=== PATIENT | female | born 1940 | race Caucasian/White ===

== ENCOUNTER 2020-06-29 14:12 | Inpatient (IN) ==
[2020-06-29] MEDS ORDERED: Isovue-370 500 ML BOTTLE IVP ONE (14:38)
[2020-06-29] MEDS ORDERED: 0.9 % Sodium Chloride 500 ML ONE (15:08)
[2020-06-29 15:11] LABS: Basophils % 0.1 %; Eosinophils # 0.1 K/mcL (0.0-0.6); Eosinophils % 1.6 %; Hemoglobin 8.7 g/dL (11.5-15.4); Immature Granulocytes % 0.3 % (0-4); Lymphocytes # 1.2 K/mcL (0.6-4.6); Lymphocytes % 17.7 %; Mean Corpuscular HGB Conc 31.1 g/dL (31.6-35.5); Mean Corpuscular Hemoglobin 35.4 pg (28.0-33.3); Mean Corpuscular Volume 113.8 fL (83.0-100.0); Mean Platelet Volume 9.2 fL (9.4-12.4); Monocytes # 0.5 K/mcL (0.0-1.3); Monocytes % 7.5 %; Neutrophils # 4.9 K/mcL (1.6-8.9); Platelet Count 188 K/mcL (140-400); Red Blood Count 2.46 M/mcL (3.82-4.97); Red Cell Distribution Width 15.9 % (11.5-14.5); Segmented Neutrophils % 72.8 %; White Blood Count 6.7 K/mcL (4.3-11.1)
[2020-06-29 15:13] LABS: INR 1.1; Prothrombin Time 12.7 Seconds (9.4-12.1)
[2020-06-29] MEDS ORDERED: 0.9 % Sodium Chloride 500 ML IVC ONE ×2 (15:13→15:47)
[2020-06-29 15:16] LABS: Activated Partial Thrombo Time 24.9 Seconds (26.0-36.0)
[2020-06-29 15:31] LABS: Anisocytosis 1+ (Not Present); Calcium 10.3 mg/dL (8.6-10.3); Macrocytosis Present (Not Present); Platelet Estimate Normal (Normal); Potassium 6.4 mEq/L (3.5-5.1)
[2020-06-29] MEDS ORDERED: *HR* Dextrose 50 % in Water (Vial) 50 ML VIAL IVP ONE (15:35)
[2020-06-29] MEDS ORDERED: Albuterol 2.5 MG/3 ML NEBULIZER IH ONE (15:36)
[2020-06-29] MEDS ORDERED: Calcium Gluconate 1gm/50mL 1 GM/50 ML BAG IVPB ONE (15:41)
[2020-06-29] MEDS ORDERED: Insulin Human Regular 10 UNIT in 0.9 % Sodium Chloride 10 ML IV STA (15:42)
[2020-06-29] MEDS ORDERED: Calcium Gluconate 1gm/50mL 1 GM/50 ML BAG IVPB STA (15:43)
[2020-06-29] MEDS ORDERED: MetroNIDAZOLE 500 MG/100 ML 500 MG/100 ML BAG IVPB ONE (16:02)
[2020-06-29] MEDS ORDERED: Pantoprazole 40 MG VIAL IVP ONE (16:06)
[2020-06-29] MEDS ORDERED: D5% in Water 1,000 ML IVC PRN (16:07)
[2020-06-29] MEDS ORDERED: Naloxone 0.4 MG/ML INJ IVP PRN (16:07)
[2020-06-29] MEDS ORDERED: Dextrose Gel 15 GM/37.5 ML TUBE PO PRN ×2 (16:07)
[2020-06-29] MEDS ORDERED: *HR* Dextrose 50 % in Water (Vial) 50 ML VIAL IVP PRN (16:07)
[2020-06-29] MEDS ORDERED: Acetaminophen 325 MG TABLET PO PRN (16:07)
[2020-06-29] MEDS ORDERED: Ondansetron 4 MG/2 ML VIAL IVP PRN (16:07)
[2020-06-29] MEDS ORDERED: 0.9 % Sodium Chloride 1,000 ML IVC SCH (16:30)
[2020-06-29] MEDS: Insulin LISPRO 300 UNITS/3 ML VIAL SUBQ SCH (19:58)
[2020-06-29] MEDS ORDERED: Nystatin POWDER 30 GM BOTTLE TP PRN (20:26)
[2020-06-29 21:42] LABS: Hematocrit 27.7 % (35.3-44.9); Hemoglobin 8.4 g/dL (11.5-15.4); Mean Corpuscular HGB Conc 30.3 g/dL (31.6-35.5); Mean Corpuscular Hemoglobin 34.6 pg (28.0-33.3); Platelet Count 158 K/mcL (140-400); Red Blood Count 2.43 M/mcL (3.82-4.97); Red Cell Distribution Width 15.8 % (11.5-14.5)
[2020-06-29 21:59] LABS: Calcium 9.8 mg/dL (8.6-10.3); Potassium 5.8 mEq/L (3.5-5.1)
[2020-06-30] MEDS: MetroNIDAZOLE 500 MG/100 ML 500 MG/100 ML BAG IVPB SCH ×4 (00:14→23:41)
[2020-06-30] MEDS ORDERED: Calcium Gluconate 1gm/50mL 1 GM/50 ML BAG IVPB ONE ×2 (01:07→03:26)
[2020-06-30 01:59] LABS: Basophils % 0.2 %; Eosinophils # 0.1 K/mcL (0.0-0.6); Eosinophils % 1.3 %; Hematocrit 25.2 % (35.3-44.9); Hemoglobin 7.8 g/dL (11.5-15.4); Immature Granulocytes % 0.5 % (0-4); Lymphocytes # 1.1 K/mcL (0.6-4.6); Lymphocytes % 17.5 %; Mean Corpuscular Hemoglobin 35.1 pg (28.0-33.3); Mean Corpuscular Volume 113.5 fL (83.0-100.0); Mean Platelet Volume 9.5 fL (9.4-12.4); Monocytes # 0.5 K/mcL (0.0-1.3); Monocytes % 8.7 %; Neutrophils # 4.3 K/mcL (1.6-8.9); Platelet Count 152 K/mcL (140-400); Red Blood Count 2.22 M/mcL (3.82-4.97); Red Cell Distribution Width 15.6 % (11.5-14.5); Segmented Neutrophils % 71.8 %
[2020-06-30 02:17] LABS: Calcium 9.7 mg/dL (8.6-10.3); Magnesium 1.3 mg/dL (1.6-2.6); Potassium 6.2 mEq/L (3.5-5.1)
[2020-06-30] MEDS ORDERED: Insulin Human Regular 10 UNIT in 0.9 % Sodium Chloride 10 ML IV ONE (03:06)
[2020-06-30] MEDS ORDERED: *HR* Dextrose 50 % in Water (Vial) 50 ML VIAL IVP ONE (03:07)
[2020-06-30 03:09] LABS: Macrocytosis Present (Not Present); Platelet Estimate Normal (Normal)
[2020-06-30 06:09] LABS: Calcium 10.2 mg/dL (8.6-10.3); Potassium 5.9 mEq/L (3.5-5.1)
[2020-06-30] MEDS ORDERED: Magnesium Sulfate 1 GM/102 ML PIGGYBACK IVPB ONE (07:24)
[2020-06-30] MEDS ORDERED: Sodium Bicarbonate 75 MEQ in 0.45 % Sodium Chloride 1,000 ML IVC SCH (07:30)
[2020-06-30] MEDS: Insulin LISPRO 300 UNITS/3 ML VIAL SUBQ SCH ×3 (09:28→16:53)
[2020-06-30] MEDS: Pantoprazole 40 MG VIAL IVP SCH (09:34)
[2020-06-30] MEDS: allopurinoL 100 MG TABLET PO SCH (11:12)
[2020-07-01 01:32] LABS: Basophils % 0.1 %; Eosinophils # 0.1 K/mcL (0.0-0.6); Eosinophils % 1.2 %; Hematocrit 25.1 % (35.3-44.9); Hemoglobin 8.1 g/dL (11.5-15.4); Immature Granulocytes % 0.3 % (0-4); Lymphocytes % 13.7 %; Mean Corpuscular HGB Conc 32.3 g/dL (31.6-35.5); Mean Corpuscular Hemoglobin 36.5 pg (28.0-33.3); Mean Corpuscular Volume 113.1 fL (83.0-100.0); Mean Platelet Volume 9.6 fL (9.4-12.4); Monocytes # 0.7 K/mcL (0.0-1.3); Monocytes % 9.4 %; Neutrophils # 5.2 K/mcL (1.6-8.9); Platelet Count 142 K/mcL (140-400); Red Blood Count 2.22 M/mcL (3.82-4.97); Red Cell Distribution Width 15.3 % (11.5-14.5); Segmented Neutrophils % 75.3 %; White Blood Count 6.9 K/mcL (4.3-11.1)
[2020-07-01 02:01] LABS: Anisocytosis 1+ (Not Present); Macrocytosis Present (Not Present); Platelet Estimate Normal (Normal)
[2020-07-01 02:02] LABS: Calcium 9.1 mg/dL (8.6-10.3); Magnesium 1.1 mg/dL (1.6-2.6); Potassium 5.9 mEq/L (3.5-5.1)
[2020-07-01] MEDS: Insulin LISPRO 300 UNITS/3 ML VIAL SUBQ SCH ×3 (07:16→17:08)
[2020-07-01] MEDS: MetroNIDAZOLE 500 MG/100 ML 500 MG/100 ML BAG IVPB SCH ×3 (07:19→23:53)
[2020-07-01] MEDS: allopurinoL 100 MG TABLET PO SCH (07:20)
[2020-07-01] MEDS: Pantoprazole 40 MG VIAL IVP SCH (07:20)
[2020-07-01] MEDS ORDERED: Perflutren Lipid Microsphere 1.3 ML in 0.9 % Sodium Chloride 8.7 ML IVP PRN (07:30)
[2020-07-01] MEDS: Sodium Bicarbonate 150 MEQ in D5% in Water 1,000 ML IVC SCH (15:39)
[2020-07-01 19:58] LABS: Potassium,Urine 42.3 mEq/L
[2020-07-02 06:54] LABS: Basophils % 0.3 %; Eosinophils # 0.2 K/mcL (0.0-0.6); Eosinophils % 2.2 %; Hematocrit 26.4 % (35.3-44.9); Hemoglobin 8.4 g/dL (11.5-15.4); Immature Granulocytes % 0.5 % (0-4); Lymphocytes # 1.3 K/mcL (0.6-4.6); Lymphocytes % 17.3 %; Mean Corpuscular HGB Conc 31.8 g/dL (31.6-35.5); Mean Corpuscular Hemoglobin 35.6 pg (28.0-33.3); Mean Corpuscular Volume 111.9 fL (83.0-100.0); Mean Platelet Volume 9.1 fL (9.4-12.4); Monocytes # 0.6 K/mcL (0.0-1.3); Monocytes % 8.1 %; Neutrophils # 5.2 K/mcL (1.6-8.9); Nucleated Red Blood Cells 0.3 /100 WBC (0); Platelet Count 132 K/mcL (140-400); Red Blood Count 2.36 M/mcL (3.82-4.97); Red Cell Distribution Width 15.4 % (11.5-14.5); Segmented Neutrophils % 71.6 %; White Blood Count 7.3 K/mcL (4.3-11.1)
[2020-07-02 07:22] LABS: Anisocytosis 1+ (Not Present)
[2020-07-02 07:23] LABS: Macrocytosis Present (Not Present); Magnesium 1.3 mg/dL (1.6-2.6); Platelet Estimate Normal (Normal); Potassium 4.5 mEq/L (3.5-5.1)
[2020-07-02] MEDS: Pantoprazole 40 MG VIAL IVP SCH (08:25)
[2020-07-02] MEDS: allopurinoL 100 MG TABLET PO SCH (08:25)
[2020-07-02] MEDS: Insulin LISPRO 300 UNITS/3 ML VIAL SUBQ SCH ×3 (08:26→17:12)
[2020-07-02] MEDS: MetroNIDAZOLE 500 MG/100 ML 500 MG/100 ML BAG IVPB SCH ×2 (08:27→17:55)
[2020-07-02] MEDS: Sodium Bicarbonate 150 MEQ in D5% in Water 1,000 ML IVC SCH (18:07)
[2020-07-03 01:26] LABS: Basophils % 0.3 %; Eosinophils # 0.1 K/mcL (0.0-0.6); Eosinophils % 2.3 %; Hematocrit 23.7 % (35.3-44.9); Hemoglobin 7.7 g/dL (11.5-15.4); Immature Granulocytes % 0.5 % (0-4); Lymphocytes # 0.9 K/mcL (0.6-4.6); Lymphocytes % 15.1 %; Mean Corpuscular HGB Conc 32.5 g/dL (31.6-35.5); Mean Corpuscular Hemoglobin 35.8 pg (28.0-33.3); Mean Corpuscular Volume 110.2 fL (83.0-100.0); Mean Platelet Volume 9.5 fL (9.4-12.4); Monocytes # 0.6 K/mcL (0.0-1.3); Monocytes % 10.5 %; Neutrophils # 4.3 K/mcL (1.6-8.9); Platelet Count 127 K/mcL (140-400); Red Blood Count 2.15 M/mcL (3.82-4.97); Red Cell Distribution Width 14.9 % (11.5-14.5); Segmented Neutrophils % 71.3 %
[2020-07-03 01:41] LABS: Calcium 8.6 mg/dL (8.6-10.3); Magnesium 1.5 mg/dL (1.6-2.6); Potassium 4.6 mEq/L (3.5-5.1)
[2020-07-03 02:37] LABS: Macrocytosis Present (Not Present); Platelet Estimate Normal (Normal)
[2020-07-03] MEDS: MetroNIDAZOLE 500 MG/100 ML 500 MG/100 ML BAG IVPB SCH ×2 (02:53→08:37)
[2020-07-03] MEDS: Sodium Bicarbonate 150 MEQ in D5% in Water 1,000 ML IVC SCH ×2 (04:56→23:25)
[2020-07-03] MEDS: allopurinoL 100 MG TABLET PO SCH (08:36)
[2020-07-03] MEDS: Pantoprazole 40 MG VIAL IVP SCH (08:37)
[2020-07-03] MEDS: Insulin LISPRO 300 UNITS/3 ML VIAL SUBQ SCH ×3 (08:46→17:24)
[2020-07-03] MEDS ORDERED: Piperacillin/Tazobactam 3.375 GM in 0.9 % Sodium Chloride Mini Bag 100 ML IVPB SCH (12:00)
[2020-07-03] MEDS ORDERED: Lidocaine HCL 4 ML Topical Solution (Laryng-O-Jet Kit Sterile Pak) TP ONE (14:04)
[2020-07-03] MEDS ORDERED: *HR* FentaNYL (PF) 100 MCG/2 ML VIAL ONE (14:04)
[2020-07-03] MEDS ORDERED: *HR* Propofol 200 MG/20 ML VIAL IVP ONE (14:04)
[2020-07-03] MEDS ORDERED: Ondansetron 4 MG/2 ML VIAL ONE (14:04)
[2020-07-03] MEDS ORDERED: *HR* Succinylcholine 200 MG/10 ML VIAL IVP ONE (14:04)
[2020-07-03] MEDS ORDERED: *HR* Rocuronium Bromide 50 MG/5 ML VIAL ONE (14:04)
[2020-07-03] MEDS ORDERED: Lidocaine -MPF 2% 2 ML VIAL ONE (14:04)
[2020-07-03] MEDS ORDERED: *HR* Vasopressin 20 UNIT/ML VIAL ONE (14:05)
[2020-07-03] MEDS ORDERED: Albumin Human 5% 12.5 GM/250 ML IV.SOLN ONE (14:05)
[2020-07-03] MEDS ORDERED: *HR* HYDROmorphone PF 0.5 MG/0.5 ML SYRINGE IVP PRN (14:06)
[2020-07-03] MEDS ORDERED: Ondansetron 4 MG/2 ML VIAL IVP PRN ×2 (14:06→18:00)
[2020-07-03] MEDS ORDERED: Sugammadex Sodium 200 MG/2 ML VIAL IV ONE (16:00)
[2020-07-03] MEDS ORDERED: *HR* HYDROMORPHONE 2 MG/ML VIAL ONE (16:01)
[2020-07-03] MEDS ORDERED: Naloxone 0.4 MG/ML INJ IVP PRN (18:00)
[2020-07-03] MEDS ORDERED: Perflutren Lipid Microsphere 1.3 ML in 0.9 % Sodium Chloride 8.7 ML IVP PRN (18:00)
[2020-07-03] MEDS ORDERED: Dextrose Gel 15 GM/37.5 ML TUBE PO PRN ×2 (18:00)
[2020-07-03] MEDS ORDERED: Sodium Bicarbonate 150 MEQ in D5% in Water 1,000 ML IVC SCH (18:00)
[2020-07-03] MEDS ORDERED: D5% in Water 1,000 ML IVC PRN (18:00)
[2020-07-03] MEDS ORDERED: Nystatin POWDER 30 GM BOTTLE TP PRN (18:00)
[2020-07-03] MEDS ORDERED: *HR* Dextrose 50 % in Water (Vial) 50 ML VIAL IVP PRN (18:00)
[2020-07-03] MEDS: Acetaminophen 325 MG TABLET PO PRN (21:36)
[2020-07-04] MEDS: Piperacillin/Tazobactam 3.375 GM in 0.9 % Sodium Chloride Mini Bag 100 ML IVPB SCH ×4 (00:35→23:15)
[2020-07-04 05:16] LABS: Hematocrit 24.9 % (35.3-44.9); Immature Granulocytes % 0.5 % (0-4); Lymphocytes # 0.3 K/mcL (0.6-4.6); Lymphocytes % 3.4 %; Mean Corpuscular HGB Conc 32.1 g/dL (31.6-35.5); Mean Corpuscular Hemoglobin 35.6 pg (28.0-33.3); Mean Corpuscular Volume 110.7 fL (83.0-100.0); Monocytes # 0.2 K/mcL (0.0-1.3); Monocytes % 2.3 %; Neutrophils # 9.2 K/mcL (1.6-8.9); Platelet Count 118 K/mcL (140-400); Red Blood Count 2.25 M/mcL (3.82-4.97); Red Cell Distribution Width 14.6 % (11.5-14.5); Segmented Neutrophils % 93.8 %
[2020-07-04 05:27] LABS: White Blood Count 9.8 K/mcL (4.3-11.1)
[2020-07-04 05:37] LABS: Calcium 8.6 mg/dL (8.6-10.3); Magnesium 1.7 mg/dL (1.6-2.6); Potassium 4.7 mEq/L (3.5-5.1)
[2020-07-04 05:49] LABS: Macrocytosis Present (Not Present)
[2020-07-04 05:50] LABS: Anisocytosis 1+ (Not Present); Platelet Estimate Normal (Normal)
[2020-07-04] MEDS: allopurinoL 100 MG TABLET PO SCH (08:00)
[2020-07-04] MEDS: 0.9 % Sodium Chloride 1,000 ML IVC SCH ×2 (08:08→23:13)
[2020-07-04] MEDS: Pantoprazole 40 MG VIAL IVP SCH (08:09)
[2020-07-04] MEDS: Insulin LISPRO 300 UNITS/3 ML VIAL SUBQ SCH ×3 (08:10→17:36)
[2020-07-04] MEDS: Acetaminophen 325 MG TABLET PO PRN (15:36)
[2020-07-05 05:22] LABS: Basophils % 0.1 %; Hematocrit 23.6 % (35.3-44.9); Hemoglobin 7.7 g/dL (11.5-15.4); Immature Granulocytes % 0.5 % (0-4); Lymphocytes # 0.4 K/mcL (0.6-4.6); Lymphocytes % 3.7 %; Mean Corpuscular HGB Conc 32.6 g/dL (31.6-35.5); Mean Corpuscular Hemoglobin 36.3 pg (28.0-33.3); Mean Corpuscular Volume 111.3 fL (83.0-100.0); Mean Platelet Volume 9.9 fL (9.4-12.4); Monocytes # 0.4 K/mcL (0.0-1.3); Monocytes % 3.6 %; Neutrophils # 10.5 K/mcL (1.6-8.9); Nucleated Red Blood Cells 0.2 /100 WBC (0); Platelet Count 124 K/mcL (140-400); Red Blood Count 2.12 M/mcL (3.82-4.97); Red Cell Distribution Width 14.6 % (11.5-14.5); Segmented Neutrophils % 92.1 %; White Blood Count 11.4 K/mcL (4.3-11.1)
[2020-07-05 05:54] LABS: Anisocytosis 1+ (Not Present); Platelet Estimate Slight Decrease (Normal); Poikilocytosis 1+ (Not Present)
[2020-07-05 05:56] LABS: Calcium 8.5 mg/dL (8.6-10.3); Magnesium 1.7 mg/dL (1.6-2.6); Potassium 4.8 mEq/L (3.5-5.1)
[2020-07-05] MEDS ORDERED: Ringers Solution, Lactated 1,000 ML IVC SCH (07:30)
[2020-07-05] MEDS: Piperacillin/Tazobactam 3.375 GM in 0.9 % Sodium Chloride Mini Bag 100 ML IVPB SCH ×2 (08:51→16:09)
[2020-07-05] MEDS: Pantoprazole 40 MG VIAL IVP SCH (08:52)
[2020-07-05] MEDS: allopurinoL 100 MG TABLET PO SCH (08:52)
[2020-07-05] MEDS: Insulin LISPRO 300 UNITS/3 ML VIAL SUBQ SCH ×3 (08:55→16:18)
[2020-07-05] MEDS: 0.9 % Sodium Chloride 1,000 ML IVC SCH (13:35)
[2020-07-05] MEDS: Acetaminophen 325 MG TABLET PO PRN (18:08)
[2020-07-05] MEDS: Apixaban 5 MG TABLET PO SCH (20:04)
[2020-07-06] MEDS: Piperacillin/Tazobactam 3.375 GM in 0.9 % Sodium Chloride Mini Bag 100 ML IVPB SCH ×2 (00:19→08:45)
[2020-07-06 03:22] LABS: Hematocrit 23.2 % (35.3-44.9); Hemoglobin 7.4 g/dL (11.5-15.4); Immature Granulocytes % 0.6 % (0-4); Lymphocytes # 0.7 K/mcL (0.6-4.6); Lymphocytes % 6.5 %; Mean Corpuscular HGB Conc 31.9 g/dL (31.6-35.5); Mean Corpuscular Hemoglobin 35.2 pg (28.0-33.3); Mean Corpuscular Volume 110.5 fL (83.0-100.0); Mean Platelet Volume 9.7 fL (9.4-12.4); Monocytes # 0.5 K/mcL (0.0-1.3); Monocytes % 4.7 %; Neutrophils # 9.3 K/mcL (1.6-8.9); Nucleated Red Blood Cells 0.2 /100 WBC (0); Platelet Count 124 K/mcL (140-400); Red Cell Distribution Width 14.9 % (11.5-14.5); Segmented Neutrophils % 88.2 %; White Blood Count 10.5 K/mcL (4.3-11.1)
[2020-07-06 03:33] LABS: Calcium 8.2 mg/dL (8.6-10.3); Magnesium 1.6 mg/dL (1.6-2.6); Potassium 4.4 mEq/L (3.5-5.1)
[2020-07-06 03:43] LABS: Anisocytosis 1+ (Not Present); Platelet Estimate Slight Decrease (Normal); Poikilocytosis 1+ (Not Present)
[2020-07-06] MEDS: 0.9 % Sodium Chloride 1,000 ML IVC SCH (05:08)
[2020-07-06] MEDS: Insulin LISPRO 300 UNITS/3 ML VIAL SUBQ SCH ×2 (08:37→12:38)
[2020-07-06] MEDS: Apixaban 5 MG TABLET PO SCH (08:45)
[2020-07-06] MEDS: allopurinoL 100 MG TABLET PO SCH (08:45)
[2020-07-06] MEDS: Pantoprazole 40 MG VIAL IVP SCH (08:45)
[2020-07-06 11:59] VITALS: BP 113/72
== END 2020-07-06 17:10 | disposition home health service (06) ==
LOC: EMEROOARM 14:12 → 2NNU 14:12 → SUATTDRO 17:14 → 2NNU 18:50 → 2ANU 07-01 13:54 → SUATTDRO 07-01 14:27
PROVIDERS: ADMIT Internal Medicine; ATTEND Family Medicine

== ENCOUNTER 2020-07-10 11:40 | Observation (INO) ==
[2020-07-10] MEDS ORDERED: Isovue-370 500 ML BOTTLE IVP ONE (12:09)
[2020-07-10 14:58] LABS: Hematocrit 27.1 % (35.3-44.9); Hemoglobin 8.4 g/dL (11.5-15.4); Lymphocytes # 0.6 K/mcL (0.6-4.6); Mean Corpuscular Volume 112.9 fL (83.0-100.0); Mean Platelet Volume 9.5 fL (9.4-12.4); Platelet Count 263 K/mcL (140-400); Red Cell Distribution Width 15.7 % (11.5-14.5); White Blood Count 13.8 K/mcL (4.3-11.1)
[2020-07-10 15:12] LABS: INR 1.9; Prothrombin Time 21.4 Seconds (9.4-12.1)
[2020-07-10 15:14] LABS: Activated Partial Thrombo Time 29.4 Seconds (26.0-36.0)
[2020-07-10 15:31] LABS: Albumin 2.7 g/dL (3.5-5.7); Bilirubin,Total 0.4 mg/dL (0.3-1.0); Calcium 8.5 mg/dL (8.6-10.3); Globulin 2.6 g/dL (2.4-3.5); Total Protein 5.3 g/dL (6.4-8.9)
[2020-07-10 15:41] LABS: Monocytes # 1.1 K/mcL (0.0-1.3); Neutrophils # 12.1 K/mcL (1.6-8.9)
[2020-07-10 15:42] LABS: Anisocytosis 1+ (Not Present); Platelet Estimate Normal (Normal); Polychromasia 1+ (Not Present); Toxic Granulation Present (Not Present)
[2020-07-10 15:43] LABS: Macrocytosis Present (Not Present)
[2020-07-10] MEDS ORDERED: Isovue-370 500 ML BOTTLE PO ONE (15:50)
[2020-07-10 16:10] LABS: Troponin I 0.04 ng/mL (< 0.04)
[2020-07-10 17:06] LABS: Bacteria,Urine Few per hpf (None-Few); Bilirubin,Urine Negative (Negative); Blood,Urine Small (Negative); Clarity,Urine Turbid (Clear); Color,Urine Yellow (Yellow); Glucose,Urine (UA) Normal (Normal); Ketones,Urine Trace mg/dL (Negative); Leukocyte Esterase,Urine Small (Negative); Mucus,Urine Few per lpf (None-Few); Nitrite,Urine Negative (Negative); PH,Urine 5.5 pH Units (5.0-8.0); Protein,Urine 30 mg/dL (Neg-Trace); RBC,Urine 0-3 per hpf (0-3); Specific Gravity,Urine 1.028 (1.010-1.025); Squamous Epithelial Cell,Urine Moderate per hpf (None-Few); WBC,Urine 0-3 per hpf (0-3)
[2020-07-10] MEDS ORDERED: 0.9 % Sodium Chloride 500 ML IVC ONE (17:12)
[2020-07-10] MEDS ORDERED: Vancomycin Oral Soln 125 MG/2.5 ML UDC PO STA (19:29)
[2020-07-10] MEDS ORDERED: *HR* HYDROcodone/Acet 5/325 mg TABLET PO PRN (20:46)
[2020-07-10] MEDS ORDERED: Naloxone 0.4 MG/ML INJ IVP PRN (20:46)
[2020-07-10] MEDS ORDERED: Acetaminophen 325 MG TABLET PO PRN (20:46)
[2020-07-10] MEDS ORDERED: Ondansetron 4 MG/2 ML VIAL IVP PRN (20:46)
[2020-07-10] MEDS ORDERED: D5% in Water 1,000 ML IVC PRN (21:22)
[2020-07-10] MEDS ORDERED: *HR* Dextrose 50 % in Water (Vial) 50 ML VIAL IVP PRN (21:22)
[2020-07-10] MEDS ORDERED: Dextrose Gel 15 GM/37.5 ML TUBE PO PRN ×2 (21:22)
[2020-07-10] MEDS: 0.9 % Sodium Chloride 1,000 ML IVC SCH (21:54)
[2020-07-10] MEDS: Apixaban 5 MG TABLET PO SCH (22:46)
[2020-07-10 23:05] LABS: Estimated Average Glucose 134 mg/dl; Hemoglobin A1C 6.3 %
[2020-07-11] MEDS: Vancomycin Oral Soln 125 MG/2.5 ML UDC PO SCH ×5 (03:34→20:18)
[2020-07-11 05:22] LABS: Basophils % 0.1 %; Eosinophils % 0.3 %; Hematocrit 23.3 % (35.3-44.9); Hemoglobin 7.2 g/dL (11.5-15.4); Immature Granulocytes % 0.8 % (0-4); Lymphocytes # 0.8 K/mcL (0.6-4.6); Lymphocytes % 6.4 %; Mean Corpuscular HGB Conc 30.9 g/dL (31.6-35.5); Mean Corpuscular Hemoglobin 34.6 pg (28.0-33.3); Mean Platelet Volume 8.8 fL (9.4-12.4); Monocytes # 0.9 K/mcL (0.0-1.3); Neutrophils # 11.1 K/mcL (1.6-8.9); Platelet Count 220 K/mcL (140-400); Red Blood Count 2.08 M/mcL (3.82-4.97); Red Cell Distribution Width 15.9 % (11.5-14.5); Segmented Neutrophils % 85.4 %
[2020-07-11] MEDS: 0.9 % Sodium Chloride 1,000 ML IVC SCH (05:29)
[2020-07-11 05:35] LABS: Albumin 2.4 g/dL (3.5-5.7); Bilirubin,Total 0.4 mg/dL (0.3-1.0); Calcium 7.9 mg/dL (8.6-10.3); Globulin 2.3 g/dL (2.4-3.5); Magnesium 1.1 mg/dL (1.6-2.6); Phosphorous 2.6 mg/dL (2.7-4.5); Potassium 3.7 mEq/L (3.5-5.1); Total Protein 4.7 g/dL (6.4-8.9)
[2020-07-11 05:48] LABS: Anisocytosis 1+ (Not Present); Macrocytosis Present (Not Present); Platelet Estimate Normal (Normal); Polychromasia 1+ (Not Present)
[2020-07-11] MEDS: Insulin LISPRO 300 UNITS/3 ML VIAL SUBQ SCH ×3 (07:45→17:31)
[2020-07-11] MEDS: allopurinoL 100 MG TABLET PO SCH (09:36)
[2020-07-11] MEDS: Albumin 25% 25gram/100mL 25 GM/100 ML IV.SOLN IVPB SCH ×2 (09:37→17:30)
[2020-07-11] MEDS: Aspirin Enteric Coated 81 MG Tablet PO SCH (09:37)
[2020-07-11] MEDS: Apixaban 5 MG TABLET PO SCH (09:38)
[2020-07-11] MEDS ORDERED: Potassium Phosphate 44 MEQ in 0.9 % Sodium Chloride 250 ML IVPB ONE (13:32)
[2020-07-12] MEDS: Insulin LISPRO 300 UNITS/3 ML VIAL SUBQ SCH ×5 (00:27→21:13)
[2020-07-12] MEDS: Albumin 25% 25gram/100mL 25 GM/100 ML IV.SOLN IVPB SCH (01:02)
[2020-07-12 05:21] LABS: Basophils % 0.1 %; Eosinophils # 0.2 K/mcL (0.0-0.6); Eosinophils % 1.9 %; Hematocrit 19.5 % (35.3-44.9); Hemoglobin 6.2 g/dL (11.5-15.4); Lymphocytes # 0.8 K/mcL (0.6-4.6); Lymphocytes % 8.7 %; Mean Corpuscular HGB Conc 31.8 g/dL (31.6-35.5); Mean Corpuscular Hemoglobin 35.4 pg (28.0-33.3); Mean Corpuscular Volume 111.4 fL (83.0-100.0); Mean Platelet Volume 9.3 fL (9.4-12.4); Monocytes # 0.5 K/mcL (0.0-1.3); Monocytes % 5.5 %; Neutrophils # 7.8 K/mcL (1.6-8.9); Platelet Count 195 K/mcL (140-400); Red Blood Count 1.75 M/mcL (3.82-4.97); Red Cell Distribution Width 15.2 % (11.5-14.5); Segmented Neutrophils % 82.8 %; White Blood Count 9.4 K/mcL (4.3-11.1)
[2020-07-12 05:42] LABS: % Iron Saturation 21 % (15-50); Alanine Aminotransferase 22 Units/L (7-52); Albumin 2.9 g/dL (3.5-5.7); Albumin/Globulin Ratio 1.5 (1.1-2.2); Alkaline Phosphatase 45 Units/L (34-104); Aspartate Amino Transferase 30 Units/L (13-39); BUN/Creatinine Ratio 21 (6-26); Bilirubin,Total 0.4 mg/dL (0.3-1.0); Blood Urea Nitrogen 21 mg/dL (8-23); Calcium 7.6 mg/dL (8.6-10.3); Carbon Dioxide 21 mEq/L (23-29); Chloride 111 mEq/L (98-107); Globulin 1.9 g/dL (2.4-3.5); Glucose 108 mg/dL (70-105); Iron 23 mcg/dL (50-170); Magnesium 1.4 mg/dL (1.6-2.6); Osmolality,Calculated 290 (280-300); Phosphorous 2.7 mg/dL (2.7-4.5); Potassium 3.6 mEq/L (3.5-5.1); Sodium 138 mEq/L (136-145); Total Protein 4.8 g/dL (6.4-8.9); Transferrin 77 mg/dL (203-362); eGFR For African Americans > 60 (> 60); eGFR For Non-African Americans 53 (> 60)
[2020-07-12 05:54] LABS: Anisocytosis 1+ (Not Present); Macrocytosis Present (Not Present); Platelet Estimate Normal (Normal); Poikilocytosis 1+ (Not Present)
[2020-07-12 05:55] LABS: Ferritin 349 ng/mL (10-120)
[2020-07-12 06:01] LABS: Folate 4.3 ng/mL (3.0-16.0)
[2020-07-12] MEDS ORDERED: Cyanocobalamin (B-12) 1,000 MCG/ML VIAL IM ONE (07:30)
[2020-07-12] MEDS: Folic Acid 1 MG TABLET PO SCH (08:04)
[2020-07-12] MEDS: Aspirin Enteric Coated 81 MG Tablet PO SCH (08:04)
[2020-07-12] MEDS: allopurinoL 100 MG TABLET PO SCH (08:04)
[2020-07-12] MEDS: Vancomycin Oral Soln 125 MG/2.5 ML UDC PO SCH ×4 (08:05→21:13)
[2020-07-12] MEDS: Iron Sucrose Complex 250 MG in 0.9 % Sodium Chloride 250 ML IVPB SCH (09:22)
[2020-07-12] MEDS ORDERED: 0.9 % Sodium Chloride 250 ML ONE ×2 (11:02→15:43)
[2020-07-12 21:40] LABS: Hematocrit 28.8 % (35.3-44.9)
[2020-07-12 21:41] LABS: Hemoglobin 9.4 g/dL (11.5-15.4)
[2020-07-13 05:54] LABS: Basophils % 0.3 %; Eosinophils # 0.2 K/mcL (0.0-0.6); Eosinophils % 2.5 %; Hematocrit 28.7 % (35.3-44.9); Hemoglobin 9.2 g/dL (11.5-15.4); Lymphocytes # 0.9 K/mcL (0.6-4.6); Lymphocytes % 11.7 %; Mean Corpuscular HGB Conc 32.1 g/dL (31.6-35.5); Mean Corpuscular Hemoglobin 32.2 pg (28.0-33.3); Mean Platelet Volume 9.2 fL (9.4-12.4); Monocytes # 0.5 K/mcL (0.0-1.3); Monocytes % 5.9 %; Neutrophils # 6.2 K/mcL (1.6-8.9); Platelet Count 215 K/mcL (140-400); Red Blood Count 2.86 M/mcL (3.82-4.97); Red Cell Distribution Width 21.2 % (11.5-14.5); Segmented Neutrophils % 78.6 %; White Blood Count 7.9 K/mcL (4.3-11.1)
[2020-07-13 06:11] LABS: Alanine Aminotransferase 43 Units/L (7-52); Albumin 2.7 g/dL (3.5-5.7); Albumin/Globulin Ratio 1.4 (1.1-2.2); Alkaline Phosphatase 59 Units/L (34-104); Aspartate Amino Transferase 62 Units/L (13-39); BUN/Creatinine Ratio 20 (6-26); Bilirubin,Total 0.7 mg/dL (0.3-1.0); Blood Urea Nitrogen 17 mg/dL (8-23); Calcium 7.9 mg/dL (8.6-10.3); Carbon Dioxide 20 mEq/L (23-29); Chloride 111 mEq/L (98-107); Glucose 103 mg/dL (70-105); Osmolality,Calculated 288 (280-300); Potassium 3.7 mEq/L (3.5-5.1); Sodium 138 mEq/L (136-145); Total Protein 4.7 g/dL (6.4-8.9); eGFR For African Americans > 60 (> 60); eGFR For Non-African Americans > 60 (> 60)
[2020-07-13 06:51] LABS: Mean Corpuscular Volume 100.3 fL (83.0-100.0)
[2020-07-13] MEDS: Insulin LISPRO 300 UNITS/3 ML VIAL SUBQ SCH ×4 (08:31→21:05)
[2020-07-13] MEDS: allopurinoL 100 MG TABLET PO SCH (10:36)
[2020-07-13] MEDS: Aspirin Enteric Coated 81 MG Tablet PO SCH (10:37)
[2020-07-13] MEDS: Cyanocobalamin (B-12) 1,000 MCG TABLET PO SCH (10:38)
[2020-07-13] MEDS: Folic Acid 1 MG TABLET PO SCH (10:38)
[2020-07-13] MEDS: Vancomycin Oral Soln 125 MG/2.5 ML UDC PO SCH ×4 (10:39→21:05)
[2020-07-13] MEDS: Iron Sucrose Complex 250 MG in 0.9 % Sodium Chloride 250 ML IVPB SCH (10:48)
[2020-07-14 05:48] LABS: Magnesium 1.2 mg/dL (1.6-2.6); Phosphorous 2.4 mg/dL (2.7-4.5)
[2020-07-14] MEDS ORDERED: Potassium Phosphate 44 MEQ in 0.9 % Sodium Chloride 250 ML IVPB ONE (08:00)
[2020-07-14] MEDS: Insulin LISPRO 300 UNITS/3 ML VIAL SUBQ SCH ×4 (08:56→20:50)
[2020-07-14] MEDS: Iron Sucrose Complex 250 MG in 0.9 % Sodium Chloride 250 ML IVPB SCH (08:57)
[2020-07-14] MEDS: Cyanocobalamin (B-12) 1,000 MCG TABLET PO SCH (08:58)
[2020-07-14] MEDS: allopurinoL 100 MG TABLET PO SCH (08:58)
[2020-07-14] MEDS: Vancomycin Oral Soln 125 MG/2.5 ML UDC PO SCH ×4 (08:58→20:49)
[2020-07-14] MEDS: Aspirin Enteric Coated 81 MG Tablet PO SCH (08:58)
[2020-07-14] MEDS: Folic Acid 1 MG TABLET PO SCH (08:59)
[2020-07-15 04:47] LABS: Hematocrit 30.5 % (35.3-44.9); Hemoglobin 9.6 g/dL (11.5-15.4); Mean Corpuscular HGB Conc 31.5 g/dL (31.6-35.5); Mean Corpuscular Hemoglobin 32.8 pg (28.0-33.3); Mean Corpuscular Volume 104.1 fL (83.0-100.0); Mean Platelet Volume 8.7 fL (9.4-12.4); Platelet Count 231 K/mcL (140-400); Red Blood Count 2.93 M/mcL (3.82-4.97); Red Cell Distribution Width 19.8 % (11.5-14.5); White Blood Count 6.7 K/mcL (4.3-11.1)
[2020-07-15 05:07] LABS: BUN/Creatinine Ratio 20 (6-26); Blood Urea Nitrogen 18 mg/dL (8-23); Calcium 8.4 mg/dL (8.6-10.3); Carbon Dioxide 21 mEq/L (23-29); Chloride 109 mEq/L (98-107); Glucose 104 mg/dL (70-105); Magnesium 1.6 mg/dL (1.6-2.6); Osmolality,Calculated 286 (280-300); Phosphorous 2.5 mg/dL (2.7-4.5); Potassium 3.9 mEq/L (3.5-5.1); Sodium 137 mEq/L (136-145); eGFR For African Americans > 60 (> 60); eGFR For Non-African Americans > 60 (> 60)
[2020-07-15] MEDS: Iron Sucrose Complex 250 MG in 0.9 % Sodium Chloride 250 ML IVPB SCH (09:13)
[2020-07-15] MEDS: Apixaban 5 MG TABLET PO SCH ×2 (09:14→21:15)
[2020-07-15] MEDS: Insulin LISPRO 300 UNITS/3 ML VIAL SUBQ SCH ×4 (09:14→21:10)
[2020-07-15] MEDS: Vancomycin Oral Soln 125 MG/2.5 ML UDC PO SCH ×4 (09:14→21:09)
[2020-07-15] MEDS: allopurinoL 100 MG TABLET PO SCH (09:14)
[2020-07-15] MEDS: Folic Acid 1 MG TABLET PO SCH (09:14)
[2020-07-15] MEDS: Aspirin Enteric Coated 81 MG Tablet PO SCH (09:14)
[2020-07-15] MEDS: Cyanocobalamin (B-12) 1,000 MCG TABLET PO SCH (09:14)
[2020-07-15] MEDS ORDERED: Simethicone 80 MG TAB.CHEW PO PRN (12:40)
[2020-07-15] MEDS ORDERED: Furosemide 40 MG TABLET PO ONE (12:45)
[2020-07-16 04:42] LABS: Hematocrit 28.6 % (35.3-44.9); Mean Corpuscular HGB Conc 31.5 g/dL (31.6-35.5); Mean Corpuscular Hemoglobin 32.8 pg (28.0-33.3); Mean Corpuscular Volume 104.4 fL (83.0-100.0); Platelet Count 221 K/mcL (140-400); Red Blood Count 2.74 M/mcL (3.82-4.97); Red Cell Distribution Width 19.3 % (11.5-14.5); White Blood Count 5.5 K/mcL (4.3-11.1)
[2020-07-16 05:01] LABS: BUN/Creatinine Ratio 18 (6-26); Blood Urea Nitrogen 17 mg/dL (8-23); Calcium 8.3 mg/dL (8.6-10.3); Carbon Dioxide 23 mEq/L (23-29); Chloride 111 mEq/L (98-107); Glucose 99 mg/dL (70-105); Osmolality,Calculated 290 (280-300); Potassium 4.2 mEq/L (3.5-5.1); Sodium 139 mEq/L (136-145); eGFR For African Americans > 60 (> 60); eGFR For Non-African Americans 59 (> 60)
[2020-07-16] MEDS: Insulin LISPRO 300 UNITS/3 ML VIAL SUBQ SCH ×2 (08:14→13:40)
[2020-07-16] MEDS: Aspirin Enteric Coated 81 MG Tablet PO SCH (08:20)
[2020-07-16] MEDS: allopurinoL 100 MG TABLET PO SCH (08:20)
[2020-07-16] MEDS: Apixaban 5 MG TABLET PO SCH (08:20)
[2020-07-16] MEDS: Cyanocobalamin (B-12) 1,000 MCG TABLET PO SCH (08:20)
[2020-07-16] MEDS: Folic Acid 1 MG TABLET PO SCH (08:20)
[2020-07-16] MEDS: Vancomycin Oral Soln 125 MG/2.5 ML UDC PO SCH ×2 (08:20→13:42)
[2020-07-16] MEDS: Iron Sucrose Complex 250 MG in 0.9 % Sodium Chloride 250 ML IVPB SCH (08:21)
[2020-07-16 10:00] VITALS: BP 135/81
[2020-07-17] MEDS ORDERED: Furosemide 40 MG TABLET PO SCH (08:06)
== END 2020-07-16 14:59 | disposition home health service (06) ==
LOC: 3ANU 11:40 → EMEROOARM 11:40 → SUATTDRO 20:19 → 3ANU 21:01
PROVIDERS: ADMIT Internal Medicine; ATTEND Internal Medicine

== ENCOUNTER 2020-08-13 08:14 | Inpatient (IN) ==
[2020-08-13] MEDS ORDERED: 0.9 % Sodium Chloride 1,000 ML IVC ONE (08:22)
[2020-08-13] MEDS ORDERED: Isovue-370 500 ML BOTTLE IVP ONE (08:27)
[2020-08-13 08:51] LABS: Basophils % 0.2 %; Eosinophils % 0.2 %; Hematocrit 29.9 % (35.3-44.9); Hemoglobin 9.5 g/dL (11.5-15.4); Immature Granulocytes % 0.6 % (0-4); Lymphocytes # 1.4 K/mcL (0.6-4.6); Lymphocytes % 29.2 %; Mean Corpuscular HGB Conc 31.8 g/dL (31.6-35.5); Mean Corpuscular Hemoglobin 34.9 pg (28.0-33.3); Mean Corpuscular Volume 109.9 fL (83.0-100.0); Mean Platelet Volume 9.7 fL (9.4-12.4); Monocytes # 0.4 K/mcL (0.0-1.3); Monocytes % 7.4 %; Neutrophils # 2.9 K/mcL (1.6-8.9); Platelet Count 100 K/mcL (140-400); Red Blood Count 2.72 M/mcL (3.82-4.97); Red Cell Distribution Width 20.5 % (11.5-14.5); Segmented Neutrophils % 62.4 %; White Blood Count 4.7 K/mcL (4.3-11.1)
[2020-08-13 09:12] LABS: Alanine Aminotransferase 14 Units/L (7-52); Albumin 2.8 g/dL (3.5-5.7); Alkaline Phosphatase 62 Units/L (34-104); Aspartate Amino Transferase 34 Units/L (13-39); BUN/Creatinine Ratio 19 (6-26); Bilirubin,Direct 0.2 mg/dL (0.0-0.2); Bilirubin,Indirect 0.5 mg/dL (0.0-1.0); Bilirubin,Total 0.7 mg/dL (0.3-1.0); Blood Urea Nitrogen 22 mg/dL (8-23); Calcium 6.3 mg/dL (8.6-10.3); Carbon Dioxide 24 mEq/L (23-29); Chloride 102 mEq/L (98-107); Globulin 2.9 g/dL (2.4-3.5); Glucose 128 mg/dL (70-105); Magnesium 0.7 mg/dL (1.6-2.6); Osmolality,Calculated 287 (280-300); Potassium 3.4 mEq/L (3.5-5.1); Sodium 136 mEq/L (136-145); Total Protein 5.7 g/dL (6.4-8.9); Troponin I < 0.03 ng/mL (< 0.04); eGFR For African Americans 54 (> 60); eGFR For Non-African Americans 45 (> 60)
[2020-08-13] MEDS ORDERED: Magnesium Oxide 400 MG TABLET PO ONE (09:18)
[2020-08-13] MEDS ORDERED: Calcium Gluconate 1gm/50mL 1 GM/50 ML BAG IVPB ONE (09:30)
[2020-08-13 10:27] LABS: Bilirubin,Urine Negative (Negative); Blood,Urine Moderate (Negative); Clarity,Urine Ex.Turbid (Clear); Color,Urine Light-Yellow (Yellow); Glucose,Urine (UA) Normal (Normal); Ketones,Urine Negative (Negative); Leukocyte Esterase,Urine Small (Negative); Nitrite,Urine Positive (Negative); PH,Urine 5.5 pH Units (5.0-8.0); Protein,Urine 30 mg/dL (Neg-Trace); Specific Gravity,Urine > 1.030 (1.010-1.025); Urobilinogen,Urine Normal (Normal)
[2020-08-13 10:28] LABS: Bacteria,Urine Present per hpf (None-Few); RBC,Urine Present per hpf (0-3); Squamous Epithelial Cell,Urine Present per hpf (None-Few); WBC,Urine TNTC per hpf (0-3)
[2020-08-13] MEDS ORDERED: Vancomycin 1,500 MG/265 ML IV.SOLN IVPB ONE (11:00)
[2020-08-13] MEDS ORDERED: Piperacillin/Tazobactam 3.375 GM in 0.9 % Sodium Chloride Mini Bag 100 ML IVPB ONE (11:06)
[2020-08-13] MEDS ORDERED: cefTRIAXone 1,000 MG in Water for inj. (sterile) 10 ML IVP ONE (11:19)
[2020-08-13] MEDS ORDERED: Naloxone 0.4 MG/ML INJ IVP PRN (12:08)
[2020-08-13] MEDS ORDERED: Potassium Chloride 40 MEQ, Lidocaine 1% 2 ML in 0.9 % Sodium Chloride 500 ML IVPB ONE (13:31)
[2020-08-13] MEDS ORDERED: Potassium Chloride Elixir 20 MEQ/15 ML UDC PO ONE (13:31)
[2020-08-13] MEDS ORDERED: Magnesium Sulfate 1 GM/102 ML PIGGYBACK IVPB ONE (14:00)
[2020-08-13] MEDS: Nystatin POWDER 30 GM BOTTLE TP PRN (15:23)
[2020-08-13] MEDS: Vancomycin Oral Soln 125 MG/2.5 ML UDC PO SCH ×2 (18:04→19:28)
[2020-08-13] MEDS: Apixaban 5 MG TABLET PO SCH (19:28)
[2020-08-14 01:34] LABS: Basophils % 0.5 %; Eosinophils % 0.7 %; Hematocrit 28.3 % (35.3-44.9); Immature Granulocytes % 0.5 % (0-4); Lymphocytes # 1.5 K/mcL (0.6-4.6); Lymphocytes % 35.8 %; Mean Corpuscular HGB Conc 31.8 g/dL (31.6-35.5); Mean Corpuscular Hemoglobin 34.7 pg (28.0-33.3); Mean Corpuscular Volume 109.3 fL (83.0-100.0); Mean Platelet Volume 10.4 fL (9.4-12.4); Monocytes # 0.3 K/mcL (0.0-1.3); Neutrophils # 2.3 K/mcL (1.6-8.9); Platelet Count 100 K/mcL (140-400); Red Blood Count 2.59 M/mcL (3.82-4.97); Red Cell Distribution Width 20.6 % (11.5-14.5); Segmented Neutrophils % 54.5 %; White Blood Count 4.3 K/mcL (4.3-11.1)
[2020-08-14 02:03] LABS: Calcium 6.2 mg/dL (8.6-10.3); Magnesium 1.3 mg/dL (1.6-2.6); Phosphorous 2.3 mg/dL (2.7-4.5); Potassium 4.3 mEq/L (3.5-5.1)
[2020-08-14] MEDS ORDERED: NON-FORMULARY MEDICATION 1 EACH EACH (Acetaminophen [Tylenol Arthritis] 650 MG Tablet.Er) PO SCH (09:00)
[2020-08-14] MEDS ORDERED: Vancomycin Oral Soln 125 MG/2.5 ML UDC PO SCH (09:00)
[2020-08-14] MEDS: Aspirin Enteric Coated 81 MG Tablet PO SCH (09:26)
[2020-08-14] MEDS: Cyanocobalamin (B-12) 1,000 MCG TABLET PO SCH (09:27)
[2020-08-14] MEDS: Apixaban 5 MG TABLET PO SCH ×2 (09:27→20:39)
[2020-08-14] MEDS: allopurinoL 100 MG TABLET PO SCH (09:29)
[2020-08-14] MEDS: Vancomycin Oral Soln 125 MG/2.5 ML UDC PO SCH ×4 (09:30→20:40)
[2020-08-14] MEDS: cefTRIAXone 1,000 MG in Water for inj. (sterile) 10 ML IVP SCH (09:40)
[2020-08-14] MEDS: Nystatin POWDER 30 GM BOTTLE TP SCH ×2 (10:04→20:41)
[2020-08-14] MEDS: Azelastine 0.1% Nasal Spray 30 ML BOTTLE NS SCH ×2 (10:05→20:40)
[2020-08-14] MEDS: Fluticasone Propionate Nasal 50 MCG/SPRAY BOTTLE NS SCH ×2 (10:05→20:40)
[2020-08-14] MEDS ORDERED: Vancomycin 1,500 MG/265 ML IV.SOLN IVPB SCH (11:00)
[2020-08-15] MEDS: allopurinoL 100 MG TABLET PO SCH (07:52)
[2020-08-15] MEDS: Apixaban 5 MG TABLET PO SCH ×2 (07:52→20:39)
[2020-08-15] MEDS: Vancomycin Oral Soln 125 MG/2.5 ML UDC PO SCH ×4 (07:52→20:40)
[2020-08-15] MEDS: Aspirin Enteric Coated 81 MG Tablet PO SCH (07:52)
[2020-08-15] MEDS: Fluticasone Propionate Nasal 50 MCG/SPRAY BOTTLE NS SCH ×2 (07:53→20:40)
[2020-08-15] MEDS: Cyanocobalamin (B-12) 1,000 MCG TABLET PO SCH (07:53)
[2020-08-15] MEDS: Nystatin POWDER 30 GM BOTTLE TP SCH (07:54)
[2020-08-15] MEDS: cefTRIAXone 1,000 MG in Water for inj. (sterile) 10 ML IVP SCH (08:09)
[2020-08-15 10:47] LABS: Basophils % 0.5 %; Eosinophils # 0.1 K/mcL (0.0-0.6); Eosinophils % 0.8 %; Hematocrit 33.4 % (35.3-44.9); Hemoglobin 10.3 g/dL (11.5-15.4); Immature Granulocytes % 0.3 % (0-4); Lymphocytes # 2.5 K/mcL (0.6-4.6); Lymphocytes % 37.3 %; Mean Corpuscular HGB Conc 30.8 g/dL (31.6-35.5); Mean Corpuscular Hemoglobin 34.4 pg (28.0-33.3); Mean Corpuscular Volume 111.7 fL (83.0-100.0); Mean Platelet Volume 9.3 fL (9.4-12.4); Monocytes # 0.5 K/mcL (0.0-1.3); Monocytes % 6.9 %; Neutrophils # 3.6 K/mcL (1.6-8.9); Platelet Count 138 K/mcL (140-400); Red Blood Count 2.99 M/mcL (3.82-4.97); Red Cell Distribution Width 20.5 % (11.5-14.5); Segmented Neutrophils % 54.2 %
[2020-08-15 11:06] LABS: Calcium 6.8 mg/dL (8.6-10.3); Magnesium 1.5 mg/dL (1.6-2.6); Potassium 4.2 mEq/L (3.5-5.1)
[2020-08-15 11:08] LABS: White Blood Count 6.6 K/mcL (4.3-11.1)
[2020-08-15 11:26] LABS: Thyroid Stimulating Hormone 15.783 mcIU/mL (0.340-5.600)
[2020-08-15 11:37] LABS: Macrocytosis Present (Not Present); Platelet Estimate Normal (Normal)
[2020-08-15] MEDS: Azelastine 0.1% Nasal Spray 30 ML BOTTLE NS SCH ×2 (11:38→20:40)
[2020-08-15 14:41] LABS: VBG Ionized Calcium 0.91 mmol/L (1.15-1.35)
[2020-08-15] MEDS: Ipratropium/Albuterol Neb 3 ML IH SCH (23:00)
[2020-08-15] MEDS: Piperacillin/Tazobactam 3.375 GM in 0.9 % Sodium Chloride Mini Bag 100 ML IVPB SCH (23:06)
[2020-08-15] MEDS: MetroNIDAZOLE 500 MG/100 ML 500 MG/100 ML BAG IVPB SCH (23:07)
[2020-08-16 02:24] LABS: Basophils % 0.9 %; Eosinophils # 0.1 K/mcL (0.0-0.6); Eosinophils % 2.4 %; Hematocrit 27.4 % (35.3-44.9); Immature Granulocytes % 0.4 % (0-4); Lymphocytes # 1.9 K/mcL (0.6-4.6); Lymphocytes % 41.4 %; Mean Corpuscular HGB Conc 30.7 g/dL (31.6-35.5); Mean Corpuscular Hemoglobin 34.7 pg (28.0-33.3); Mean Corpuscular Volume 113.2 fL (83.0-100.0); Mean Platelet Volume 9.7 fL (9.4-12.4); Monocytes # 0.3 K/mcL (0.0-1.3); Monocytes % 7.6 %; Neutrophils # 2.1 K/mcL (1.6-8.9); Platelet Count 104 K/mcL (140-400); Red Blood Count 2.42 M/mcL (3.82-4.97); Segmented Neutrophils % 47.3 %; White Blood Count 4.5 K/mcL (4.3-11.1)
[2020-08-16 02:33] LABS: Calcium 6.8 mg/dL (8.6-10.3); Hemoglobin 8.4 g/dL (11.5-15.4); Magnesium 1.7 mg/dL (1.6-2.6)
[2020-08-16 03:54] LABS: Macrocytosis Present (Not Present); Platelet Estimate Slight Decrease (Normal); Reactive Lymphocytes Present (Not Present)
[2020-08-16] MEDS: Ipratropium/Albuterol Neb 3 ML IH SCH ×4 (04:17→21:57)
[2020-08-16] MEDS: MetroNIDAZOLE 500 MG/100 ML 500 MG/100 ML BAG IVPB SCH (09:08)
[2020-08-16] MEDS: Piperacillin/Tazobactam 3.375 GM in 0.9 % Sodium Chloride Mini Bag 100 ML IVPB SCH ×3 (09:10→23:16)
[2020-08-16] MEDS: Cyanocobalamin (B-12) 1,000 MCG TABLET PO SCH (11:17)
[2020-08-16] MEDS: allopurinoL 100 MG TABLET PO SCH (11:18)
[2020-08-16] MEDS: Vancomycin Oral Soln 125 MG/2.5 ML UDC PO SCH ×4 (11:19→20:22)
[2020-08-16] MEDS: Azelastine 0.1% Nasal Spray 30 ML BOTTLE NS SCH ×2 (11:19→20:23)
[2020-08-16] MEDS: Aspirin Enteric Coated 81 MG Tablet PO SCH (11:19)
[2020-08-16] MEDS: Fluticasone Propionate Nasal 50 MCG/SPRAY BOTTLE NS SCH ×2 (11:20→20:23)
[2020-08-16] MEDS: 0.9 % Sodium Chloride 1,000 ML IVC SCH (11:24)
[2020-08-16] MEDS: Pantoprazole 40 MG VIAL IVP SCH ×2 (11:36→23:16)
[2020-08-16] MEDS: Calcium Gluconate 1gm/50mL 1 GM/50 ML BAG IVPB SCH ×2 (12:41→14:32)
[2020-08-16 13:55] LABS: Adenovirus F 40/41 PCR Not detected (Not detect); Astrovirus PCR Not detected (Not detect); C.difficile Toxin A/B Gene PCR DETECTED (Not detect); Campylobacter by PCR Not detected (Not detect); Cryptosporidium by PCR Not detected (Not detect); Cyclospora cayetanensis PCR Not detected (Not detect); E. coli O157 by PCR Not detected (Not detect); Entamoeba histolytica PCR Not detected (Not detect); Enteroaggregative E.coli(EAEC) Not detected (Not detect); Enteropathogenic E.coli(EPEC) Not detected (Not detect); Enterotoxigenic E.coli (ETEC) Not detected (Not detect); Giardia lamblia PCR Not detected (Not detect); Norovirus GI/GII PCR Not detected (Not detect); Plesiomonas shigelloides PCR Not detected (Not detect); Rotavirus A PCR Not detected (Not detect); Salmonella PCR Not detected (Not detect); Sapovirus PCR Not detected (Not detect); Shig/EnteroinvasiveE coli EIEC Not detected (Not detect); Shigalike tox-prod E coli STEC Not detected (Not detect); Vibrio PCR Not detected (Not detect); Vibrio cholerae PCR Not detected (Not detect); Yersinia enterocolitica PCR Not detected (Not detect)
[2020-08-16 20:43] LABS: Adenovirus Not Detected (Not Detect); Bordetella Pertussis Not Detected (Not Detect); Chlamydophila pneumoniae Not Detected (Not Detect); Coronavirus 229E Not Detected (Not Detect); Coronavirus HKU1 Not Detected (Not Detect); Coronavirus NL63 Not Detected (Not Detect); Coronavirus OC43 Not Detected (Not Detect); Human Metapneumovirus Not Detected (Not Detect); Human Rhinovirus/Enterovirus Not Detected (Not Detect); Influenza A Subtype 2009 H1 Not Detected (Not Detect); Influenza B Not Detected (Not Detect); Mycoplasma pneumoniae Not Detected (Not Detect); Parainfluenza Virus 1 Not Detected (Not Detect); Parainfluenza Virus 2 Not Detected (Not Detect); Parainfluenza Virus 3 Not Detected (Not Detect); Parainfluenza Virus 4 Not Detected (Not Detect); Respiratory Syncytial Virus Not Detected (Not Detect); SARS-CoV-2 Not Detected (Not Detect)
[2020-08-17 03:43] LABS: VBG Ionized Calcium 1.05 mmol/L (1.15-1.35)
[2020-08-17] MEDS: Ipratropium/Albuterol Neb 3 ML IH SCH ×4 (03:49→22:52)
[2020-08-17 03:51] LABS: Basophils % 0.8 %; Eosinophils # 0.2 K/mcL (0.0-0.6); Eosinophils % 4.1 %; Hematocrit 26.3 % (35.3-44.9); Hemoglobin 8.2 g/dL (11.5-15.4); Immature Granulocytes % 0.3 % (0-4); Lymphocytes # 1.5 K/mcL (0.6-4.6); Lymphocytes % 40.9 %; Mean Corpuscular HGB Conc 31.2 g/dL (31.6-35.5); Mean Corpuscular Hemoglobin 34.7 pg (28.0-33.3); Mean Corpuscular Volume 111.4 fL (83.0-100.0); Mean Platelet Volume 10.4 fL (9.4-12.4); Monocytes # 0.3 K/mcL (0.0-1.3); Monocytes % 8.3 %; Platelet Count 114 K/mcL (140-400); Red Blood Count 2.36 M/mcL (3.82-4.97); Red Cell Distribution Width 20.4 % (11.5-14.5); Segmented Neutrophils % 45.6 %; White Blood Count 3.6 K/mcL (4.3-11.1)
[2020-08-17 03:59] LABS: Neutrophils # 1.6 K/mcL (1.6-8.9)
[2020-08-17 04:03] LABS: Calcium 7.7 mg/dL (8.6-10.3); Magnesium 2.1 mg/dL (1.6-2.6); Potassium 3.9 mEq/L (3.5-5.1)
[2020-08-17 04:19] LABS: Poikilocytosis 1+ (Not Present)
[2020-08-17 04:20] LABS: Macrocytosis Present (Not Present); Platelet Estimate Slight Decrease (Normal); Reactive Lymphocytes Present (Not Present)
[2020-08-17] MEDS: 0.9 % Sodium Chloride 1,000 ML IVC SCH ×2 (04:39→17:03)
[2020-08-17] MEDS ORDERED: Calcium Gluconate 1gm/50mL 1 GM/50 ML BAG IVPB ONE (07:15)
[2020-08-17] MEDS: Aspirin Enteric Coated 81 MG Tablet PO SCH (07:53)
[2020-08-17] MEDS: allopurinoL 100 MG TABLET PO SCH (07:54)
[2020-08-17] MEDS: Azelastine 0.1% Nasal Spray 30 ML BOTTLE NS SCH ×2 (07:54→22:03)
[2020-08-17] MEDS: Apixaban 5 MG TABLET PO SCH ×2 (07:54→22:02)
[2020-08-17] MEDS: Fluticasone Propionate Nasal 50 MCG/SPRAY BOTTLE NS SCH ×2 (07:54→22:04)
[2020-08-17] MEDS: Cyanocobalamin (B-12) 1,000 MCG TABLET PO SCH (07:54)
[2020-08-17] MEDS: Piperacillin/Tazobactam 3.375 GM in 0.9 % Sodium Chloride Mini Bag 100 ML IVPB SCH ×3 (07:55→22:29)
[2020-08-17] MEDS: Vancomycin Oral Soln 125 MG/2.5 ML UDC PO SCH ×4 (07:57→22:03)
[2020-08-17] MEDS ORDERED: Dextrose Gel 15 GM/37.5 ML TUBE PO PRN ×2 (12:44)
[2020-08-17] MEDS ORDERED: D5% in Water 1,000 ML IVC PRN (12:44)
[2020-08-17] MEDS ORDERED: *HR* Dextrose 50 % in Water (Vial) 50 ML VIAL IVP PRN (12:44)
[2020-08-17] MEDS: Insulin LISPRO 300 UNITS/3 ML VIAL SUBQ SCH (17:06)
[2020-08-17] MEDS ORDERED: Pantoprazole 40 MG VIAL IVP SCH (18:00)
[2020-08-17] MEDS: Nystatin POWDER 30 GM BOTTLE TP PRN (22:00)
[2020-08-17] MEDS: Lactobacillus 1 EACH CAP.SPRINK PO SCH (22:03)
[2020-08-18] MEDS: Ipratropium/Albuterol Neb 3 ML IH SCH ×4 (03:57→22:26)
[2020-08-18 04:44] LABS: VBG Ionized Calcium 1.07 mmol/L (1.15-1.35)
[2020-08-18 04:45] LABS: Eosinophils # 0.2 K/mcL (0.0-0.6); Eosinophils % 3.8 %; Hematocrit 24.5 % (35.3-44.9); Hemoglobin 7.8 g/dL (11.5-15.4); Immature Granulocytes % 0.5 % (0-4); Lymphocytes % 49.1 %; Mean Corpuscular HGB Conc 31.8 g/dL (31.6-35.5); Mean Corpuscular Hemoglobin 35.3 pg (28.0-33.3); Mean Corpuscular Volume 110.9 fL (83.0-100.0); Mean Platelet Volume 9.6 fL (9.4-12.4); Monocytes # 0.3 K/mcL (0.0-1.3); Monocytes % 7.8 %; Neutrophils # 1.5 K/mcL (1.6-8.9); Platelet Count 121 K/mcL (140-400); Red Blood Count 2.21 M/mcL (3.82-4.97); Red Cell Distribution Width 20.4 % (11.5-14.5); Segmented Neutrophils % 37.8 %
[2020-08-18 05:00] LABS: Calcium 8.1 mg/dL (8.6-10.3); Magnesium 1.6 mg/dL (1.6-2.6); Potassium 4.3 mEq/L (3.5-5.1)
[2020-08-18 05:10] LABS: Anisocytosis 2+ (Not Present); Macrocytosis Present (Not Present); Platelet Estimate Slight Decrease (Normal); Reactive Lymphocytes Present (Not Present)
[2020-08-18] MEDS: Piperacillin/Tazobactam 3.375 GM in 0.9 % Sodium Chloride Mini Bag 100 ML IVPB SCH ×3 (06:00→22:31)
[2020-08-18] MEDS ORDERED: Calcium Gluconate 1gm/50mL 1 GM/50 ML BAG IVPB ONE (07:00)
[2020-08-18] MEDS: allopurinoL 100 MG TABLET PO SCH (08:36)
[2020-08-18] MEDS: Apixaban 5 MG TABLET PO SCH ×2 (08:37→20:29)
[2020-08-18] MEDS: Aspirin Enteric Coated 81 MG Tablet PO SCH (08:37)
[2020-08-18] MEDS: Cyanocobalamin (B-12) 1,000 MCG TABLET PO SCH (08:38)
[2020-08-18] MEDS: Insulin LISPRO 300 UNITS/3 ML VIAL SUBQ SCH ×3 (08:39→18:07)
[2020-08-18] MEDS: Lactobacillus 1 EACH CAP.SPRINK PO SCH ×2 (08:40→20:29)
[2020-08-18] MEDS ORDERED: ETANERCEPT 50 MG/ML SQ SCH (09:06)
[2020-08-18] MEDS: Azelastine 0.1% Nasal Spray 30 ML BOTTLE NS SCH ×2 (10:27→20:31)
[2020-08-18] MEDS: Vancomycin Oral Soln 125 MG/2.5 ML UDC PO SCH ×4 (10:27→20:29)
[2020-08-18] MEDS: Fluticasone Propionate Nasal 50 MCG/SPRAY BOTTLE NS SCH ×2 (10:27→20:31)
[2020-08-18 11:35] LABS: Hematocrit 27.1 % (35.3-44.9); Hemoglobin 8.3 g/dL (11.5-15.4)
[2020-08-18] MEDS: Albumin 25% 25gram/100mL 25 GM/100 ML IV.SOLN IVPB SCH ×2 (16:30→23:29)
[2020-08-18 19:07] LABS: Hematocrit 29.9 % (35.3-44.9); Hemoglobin 8.9 g/dL (11.5-15.4)
[2020-08-19] MEDS: Ipratropium/Albuterol Neb 3 ML IH SCH ×5 (03:11→23:25)
[2020-08-19 03:54] LABS: VBG Ionized Calcium 1.05 mmol/L (1.15-1.35)
[2020-08-19 04:09] LABS: Calcium 8.7 mg/dL (8.6-10.3); Magnesium 1.6 mg/dL (1.6-2.6); Potassium 4.9 mEq/L (3.5-5.1)
[2020-08-19] MEDS: Piperacillin/Tazobactam 3.375 GM in 0.9 % Sodium Chloride Mini Bag 100 ML IVPB SCH ×2 (05:54→17:46)
[2020-08-19 06:38] LABS: Hemoglobin 8.1 g/dL (11.5-15.4); Mean Platelet Volume 9.8 fL (9.4-12.4)
[2020-08-19 06:40] LABS: Eosinophils # 0.2 K/mcL (0.0-0.6); Eosinophils % 5.2 %; Hematocrit 25.7 % (35.3-44.9); Immature Granulocytes % 0.2 % (0-4); Immature Platelets 1.9 % (1.1-6.1); Lymphocytes # 1.4 K/mcL (0.6-4.6); Lymphocytes % 34.8 %; Mean Corpuscular HGB Conc 31.5 g/dL (31.6-35.5); Mean Corpuscular Hemoglobin 35.4 pg (28.0-33.3); Mean Corpuscular Volume 112.2 fL (83.0-100.0); Monocytes # 0.3 K/mcL (0.0-1.3); Monocytes % 6.4 %; Platelet Count 213 K/mcL (140-400); Red Blood Count 2.29 M/mcL (3.82-4.97); Red Cell Distribution Width 20.4 % (11.5-14.5); Segmented Neutrophils % 52.4 %; White Blood Count 4.1 K/mcL (4.3-11.1)
[2020-08-19 06:41] LABS: Neutrophils # 2.2 K/mcL (1.6-8.9)
[2020-08-19] MEDS ORDERED: Calcium Gluconate 1gm/50mL 1 GM/50 ML BAG IVPB ONE (07:15)
[2020-08-19 07:26] LABS: Macrocytosis Present (Not Present); Platelet Estimate Normal (Normal)
[2020-08-19] MEDS: Aspirin Enteric Coated 81 MG Tablet PO SCH (09:25)
[2020-08-19] MEDS: Cyanocobalamin (B-12) 1,000 MCG TABLET PO SCH (09:25)
[2020-08-19] MEDS: allopurinoL 100 MG TABLET PO SCH (09:25)
[2020-08-19] MEDS: Apixaban 5 MG TABLET PO SCH ×2 (09:26→22:39)
[2020-08-19] MEDS: Lactobacillus 1 EACH CAP.SPRINK PO SCH ×2 (09:26→22:40)
[2020-08-19] MEDS: Fluticasone Propionate Nasal 50 MCG/SPRAY BOTTLE NS SCH ×2 (09:26→20:30)
[2020-08-19] MEDS: Vancomycin Oral Soln 125 MG/2.5 ML UDC PO SCH ×4 (09:26→22:39)
[2020-08-19] MEDS: Azelastine 0.1% Nasal Spray 30 ML BOTTLE NS SCH ×2 (09:26→20:30)
[2020-08-19] MEDS: Albumin 25% 25gram/100mL 25 GM/100 ML IV.SOLN IVPB SCH (09:27)
[2020-08-19] MEDS: Insulin LISPRO 300 UNITS/3 ML VIAL SUBQ SCH ×3 (09:27→17:46)
[2020-08-19] MEDS: Furosemide 40 MG/4 ML VIAL IVP ONE (15:20)
[2020-08-19] MEDS ORDERED: ALPRAZolam 0.25 MG TABLET PO PRN (17:25)
[2020-08-19] MEDS ORDERED: hydrOXYzine pamoate 25 MG CAPSULE PO ONE (19:43)
[2020-08-19] MEDS ORDERED: Albuterol 2.5 MG/3 ML NEBULIZER IH PRN (20:32)
[2020-08-19] MEDS ORDERED: Furosemide 40 MG/4 ML VIAL IVP ONE (20:33)
[2020-08-19 20:41] LABS: ABG Base Excess -2 mEq/L (-2 to 3); ABG HCO3 23 mEq/L (21-27); ABG Oxygen Saturation 99 % (95-98); ABG PCO2 39 mmHg (35-45); ABG PH 7.38 pH Units (7.32-7.45); ABG PO2 145 mmHg (85-104); ABG TCO2 24 mEq/L (20-26); Blood Gas Modality S/T
[2020-08-19] MEDS ORDERED: *HR* LORazepam 2 MG/ML VIAL IVP ONE (22:11)
[2020-08-19] MEDS: Nystatin POWDER 30 GM BOTTLE TP PRN (22:40)
[2020-08-20] MEDS: Piperacillin/Tazobactam 3.375 GM in 0.9 % Sodium Chloride Mini Bag 100 ML IVPB SCH ×3 (02:06→19:30)
[2020-08-20] MEDS: Ipratropium/Albuterol Neb 3 ML IH SCH ×6 (03:54→22:39)
[2020-08-20 04:06] LABS: VBG Ionized Calcium 1.23 mmol/L (1.15-1.35)
[2020-08-20] MEDS ORDERED: Furosemide 40 MG/4 ML VIAL ONE (04:06)
[2020-08-20 04:08] LABS: Basophils % 0.4 %; Eosinophils % 0.2 %; Hematocrit 25.4 % (35.3-44.9); Hemoglobin 7.9 g/dL (11.5-15.4); Immature Granulocytes % 0.4 % (0-4); Lymphocytes # 1.1 K/mcL (0.6-4.6); Lymphocytes % 21.6 %; Mean Corpuscular HGB Conc 31.1 g/dL (31.6-35.5); Mean Corpuscular Hemoglobin 34.6 pg (28.0-33.3); Mean Corpuscular Volume 111.4 fL (83.0-100.0); Mean Platelet Volume 9.1 fL (9.4-12.4); Monocytes # 0.4 K/mcL (0.0-1.3); Monocytes % 6.9 %; Neutrophils # 3.7 K/mcL (1.6-8.9); Nucleated Red Blood Cells 0.4 /100 WBC (0); Platelet Count 109 K/mcL (140-400); Red Blood Count 2.28 M/mcL (3.82-4.97); Red Cell Distribution Width 20.3 % (11.5-14.5); Segmented Neutrophils % 70.5 %; White Blood Count 5.2 K/mcL (4.3-11.1)
[2020-08-20] MEDS ORDERED: Furosemide 40 MG/4 ML VIAL IVP ONE ×2 (04:12→10:15)
[2020-08-20 04:27] LABS: Calcium 9.3 mg/dL (8.6-10.3); Magnesium 1.3 mg/dL (1.6-2.6); Potassium 4.5 mEq/L (3.5-5.1)
[2020-08-20 04:28] LABS: Anisocytosis 2+ (Not Present); Macrocytosis Present (Not Present)
[2020-08-20 04:29] LABS: Platelet Estimate Slight Decrease (Normal); Polychromasia 1+ (Not Present)
[2020-08-20] MEDS: Cyanocobalamin (B-12) 1,000 MCG TABLET PO SCH (07:54)
[2020-08-20] MEDS: Aspirin Enteric Coated 81 MG Tablet PO SCH (07:54)
[2020-08-20] MEDS: allopurinoL 100 MG TABLET PO SCH (07:54)
[2020-08-20] MEDS: Lactobacillus 1 EACH CAP.SPRINK PO SCH ×2 (07:54→22:53)
[2020-08-20] MEDS: Apixaban 5 MG TABLET PO SCH ×2 (07:55→22:53)
[2020-08-20] MEDS: Fluticasone Propionate Nasal 50 MCG/SPRAY BOTTLE NS SCH (07:55)
[2020-08-20] MEDS: Vancomycin Oral Soln 125 MG/2.5 ML UDC PO SCH ×4 (07:55→22:54)
[2020-08-20] MEDS: Azelastine 0.1% Nasal Spray 30 ML BOTTLE NS SCH (07:55)
[2020-08-20] MEDS: Insulin LISPRO 300 UNITS/3 ML VIAL SUBQ SCH ×3 (09:19→17:10)
[2020-08-20] MEDS ORDERED: Albumin 25% 25gram/100mL 25 GM/100 ML IV.SOLN IVPB ONE (10:15)
[2020-08-20] MEDS ORDERED: Isovue-370 500 ML BOTTLE IVP ONE (10:49)
[2020-08-20 15:44] LABS: ABG Base Excess 4 mEq/L (-2 to 3); ABG HCO3 29 mEq/L (21-27); ABG Oxygen Saturation 98 % (95-98); ABG PCO2 45 mmHg (35-45); ABG PH 7.41 pH Units (7.32-7.45); ABG PO2 102 mmHg (85-104); ABG TCO2 30 mEq/L (20-26)
[2020-08-21 01:12] LABS: Basophils % 0.5 %; Eosinophils # 0.1 K/mcL (0.0-0.6); Eosinophils % 3.1 %; Hematocrit 22.8 % (35.3-44.9); Hemoglobin 7.1 g/dL (11.5-15.4); Immature Granulocytes % 0.5 % (0-4); Lymphocytes # 1.4 K/mcL (0.6-4.6); Lymphocytes % 33.7 %; Mean Corpuscular HGB Conc 31.1 g/dL (31.6-35.5); Mean Corpuscular Hemoglobin 35.1 pg (28.0-33.3); Mean Corpuscular Volume 112.9 fL (83.0-100.0); Mean Platelet Volume 9.3 fL (9.4-12.4); Monocytes # 0.4 K/mcL (0.0-1.3); Platelet Count 102 K/mcL (140-400); Red Blood Count 2.02 M/mcL (3.82-4.97); Red Cell Distribution Width 20.5 % (11.5-14.5); Segmented Neutrophils % 53.2 %; White Blood Count 4.2 K/mcL (4.3-11.1)
[2020-08-21 01:17] LABS: Neutrophils # 2.2 K/mcL (1.6-8.9)
[2020-08-21 01:21] LABS: VBG Ionized Calcium 1.21 mmol/L (1.15-1.35)
[2020-08-21 01:41] LABS: Anisocytosis 2+ (Not Present); Hypochromasia Present (Not Present); Macrocytosis Present (Not Present); Platelet Estimate Slight Decrease (Normal)
[2020-08-21 02:09] LABS: Calcium 9.2 mg/dL (8.6-10.3); Magnesium 1.5 mg/dL (1.6-2.6)
[2020-08-21] MEDS: Ipratropium/Albuterol Neb 3 ML IH SCH ×6 (03:25→23:43)
[2020-08-21] MEDS: allopurinoL 100 MG TABLET PO SCH (08:45)
[2020-08-21] MEDS: Vancomycin Oral Soln 125 MG/2.5 ML UDC PO SCH ×4 (08:45→22:57)
[2020-08-21] MEDS: Azelastine 0.1% Nasal Spray 30 ML BOTTLE NS SCH ×3 (08:45→22:57)
[2020-08-21] MEDS: Magnesium Oxide 400 MG TABLET PO SCH (08:45)
[2020-08-21] MEDS: Fluticasone Propionate Nasal 50 MCG/SPRAY BOTTLE NS SCH ×3 (08:45→22:57)
[2020-08-21] MEDS: Apixaban 5 MG TABLET PO SCH (08:46)
[2020-08-21] MEDS: Lactobacillus 1 EACH CAP.SPRINK PO SCH ×2 (08:46→22:56)
[2020-08-21] MEDS: Cyanocobalamin (B-12) 1,000 MCG TABLET PO SCH (08:46)
[2020-08-21] MEDS: Aspirin Enteric Coated 81 MG Tablet PO SCH (08:57)
[2020-08-21] MEDS: Insulin LISPRO 300 UNITS/3 ML VIAL SUBQ SCH ×3 (09:00→17:30)
[2020-08-21] MEDS ORDERED: Furosemide 40 MG/4 ML VIAL IVP ONE ×2 (12:02→16:30)
[2020-08-21 13:47] LABS: Hematocrit 25.8 % (35.3-44.9); Hemoglobin 8.1 g/dL (11.5-15.4)
[2020-08-21] MEDS: Albumin 25% 25gram/100mL 25 GM/100 ML IV.SOLN IVPB ONE (14:03)
[2020-08-21] MEDS ORDERED: Albuterol 2.5 MG/3 ML NEBULIZER IH PRN (16:00)
[2020-08-21] MEDS ORDERED: Albumin 25% 25gram/100mL 25 GM/100 ML IV.SOLN IVPB ONE (16:00)
[2020-08-21] MEDS: Furosemide 40 MG/4 ML VIAL IVP ONE (17:10)
[2020-08-21 19:32] LABS: Hematocrit 27.1 % (35.3-44.9); Hemoglobin 8.5 g/dL (11.5-15.4)
[2020-08-21] MEDS ORDERED: Furosemide 40 MG/4 ML VIAL IVP SCH (21:00)
[2020-08-22 01:30] LABS: Basophils % 0.9 %; Eosinophils # 0.2 K/mcL (0.0-0.6); Eosinophils % 3.4 %; Hemoglobin 8.4 g/dL (11.5-15.4); Immature Granulocytes % 0.7 % (0-4); Lymphocytes # 1.8 K/mcL (0.6-4.6); Lymphocytes % 40.8 %; Mean Corpuscular HGB Conc 31.1 g/dL (31.6-35.5); Mean Corpuscular Hemoglobin 35.6 pg (28.0-33.3); Mean Corpuscular Volume 114.4 fL (83.0-100.0); Mean Platelet Volume 9.6 fL (9.4-12.4); Monocytes # 0.4 K/mcL (0.0-1.3); Monocytes % 7.9 %; Platelet Count 130 K/mcL (140-400); Red Blood Count 2.36 M/mcL (3.82-4.97); Red Cell Distribution Width 20.6 % (11.5-14.5); Segmented Neutrophils % 46.3 %; White Blood Count 4.4 K/mcL (4.3-11.1)
[2020-08-22 02:02] LABS: Platelet Estimate Normal (Normal)
[2020-08-22 02:03] LABS: Anisocytosis 1+ (Not Present); Poikilocytosis 1+ (Not Present); Reactive Lymphocytes Present (Not Present); Toxic Granulation Present (Not Present)
[2020-08-22 02:04] LABS: Macrocytosis Present (Not Present)
[2020-08-22 02:14] LABS: Magnesium 1.5 mg/dL (1.6-2.6)
[2020-08-22] MEDS: Ipratropium/Albuterol Neb 3 ML IH SCH ×6 (03:55→23:28)
[2020-08-22] MEDS: Insulin LISPRO 300 UNITS/3 ML VIAL SUBQ SCH ×3 (08:00→17:03)
[2020-08-22] MEDS: Aspirin Enteric Coated 81 MG Tablet PO SCH (08:43)
[2020-08-22] MEDS: allopurinoL 100 MG TABLET PO SCH (08:43)
[2020-08-22] MEDS: Magnesium Oxide 400 MG TABLET PO SCH (08:43)
[2020-08-22] MEDS: Lactobacillus 1 EACH CAP.SPRINK PO SCH ×2 (08:43→21:58)
[2020-08-22] MEDS: Vancomycin Oral Soln 125 MG/2.5 ML UDC PO SCH ×4 (08:43→21:58)
[2020-08-22] MEDS: Cyanocobalamin (B-12) 1,000 MCG TABLET PO SCH (08:43)
[2020-08-22] MEDS: Fluticasone Propionate Nasal 50 MCG/SPRAY BOTTLE NS SCH ×2 (08:45→22:00)
[2020-08-22] MEDS: Azelastine 0.1% Nasal Spray 30 ML BOTTLE NS SCH ×2 (08:45→21:59)
[2020-08-22] MEDS ORDERED: Albumin 25% 25gram/100mL 25 GM/100 ML IV.SOLN IVPB ONE ×2 (11:19→17:00)
[2020-08-22] MEDS ORDERED: Furosemide 60 MG in 0.9 % Sodium Chloride 50 ML IVPB ONE (11:19)
[2020-08-22] MEDS ORDERED: Furosemide 40 MG/4 ML VIAL IVP ONE (17:30)
[2020-08-22] MEDS: Apixaban 5 MG TABLET PO SCH (21:59)
[2020-08-23 01:38] LABS: Basophils # 0.1 K/mcL (0.0-0.2); Basophils % 1.2 %; Eosinophils # 0.2 K/mcL (0.0-0.6); Hematocrit 24.5 % (35.3-44.9); Hemoglobin 7.7 g/dL (11.5-15.4); Immature Granulocytes % 0.5 % (0-4); Lymphocytes # 1.6 K/mcL (0.6-4.6); Lymphocytes % 39.7 %; Mean Corpuscular HGB Conc 31.4 g/dL (31.6-35.5); Mean Corpuscular Hemoglobin 35.6 pg (28.0-33.3); Mean Corpuscular Volume 113.4 fL (83.0-100.0); Mean Platelet Volume 8.6 fL (9.4-12.4); Monocytes # 0.3 K/mcL (0.0-1.3); Neutrophils # 1.9 K/mcL (1.6-8.9); Platelet Count 109 K/mcL (140-400); Red Blood Count 2.16 M/mcL (3.82-4.97); Red Cell Distribution Width 20.5 % (11.5-14.5); Segmented Neutrophils % 46.6 %
[2020-08-23 01:57] LABS: Calcium 9.2 mg/dL (8.6-10.3); Magnesium 1.2 mg/dL (1.6-2.6); Potassium 3.5 mEq/L (3.5-5.1)
[2020-08-23 03:06] LABS: Anisocytosis 1+ (Not Present); Macrocytosis Present (Not Present); Platelet Estimate Slight Decrease (Normal)
[2020-08-23] MEDS: Ipratropium/Albuterol Neb 3 ML IH SCH ×6 (03:52→23:03)
[2020-08-23] MEDS: Insulin LISPRO 300 UNITS/3 ML VIAL SUBQ SCH ×3 (09:05→17:15)
[2020-08-23] MEDS: Apixaban 5 MG TABLET PO SCH ×2 (09:07→19:22)
[2020-08-23] MEDS: Aspirin Enteric Coated 81 MG Tablet PO SCH (09:07)
[2020-08-23] MEDS: Lactobacillus 1 EACH CAP.SPRINK PO SCH ×2 (09:07→19:22)
[2020-08-23] MEDS: Magnesium Oxide 400 MG TABLET PO SCH (09:08)
[2020-08-23] MEDS: allopurinoL 100 MG TABLET PO SCH (09:08)
[2020-08-23] MEDS: Vancomycin Oral Soln 125 MG/2.5 ML UDC PO SCH ×4 (09:08→21:14)
[2020-08-23] MEDS: Cyanocobalamin (B-12) 1,000 MCG TABLET PO SCH (09:08)
[2020-08-23] MEDS: Azelastine 0.1% Nasal Spray 30 ML BOTTLE NS SCH ×2 (09:12→19:24)
[2020-08-23] MEDS: Fluticasone Propionate Nasal 50 MCG/SPRAY BOTTLE NS SCH ×2 (09:13→19:24)
[2020-08-23] MEDS ORDERED: Albumin 25% 25gram/100mL 25 GM/100 ML IV.SOLN IVPB ONE (13:36)
[2020-08-23] MEDS ORDERED: Furosemide 60 MG in 0.9 % Sodium Chloride 50 ML IVPB ONE (16:00)
[2020-08-23 18:33] LABS: Hematocrit 29.5 % (35.3-44.9); Hemoglobin 9.1 g/dL (11.5-15.4)
[2020-08-23] MEDS ORDERED: Albumin 25% 25gram/100mL 25 GM/100 ML IV.SOLN IVPB SCH (21:00)
[2020-08-23] MEDS: Furosemide 40 MG/4 ML VIAL IVP SCH (23:16)
[2020-08-24] MEDS: Ipratropium/Albuterol Neb 3 ML IH SCH ×4 (03:58→15:44)
[2020-08-24] MEDS: Insulin LISPRO 300 UNITS/3 ML VIAL SUBQ SCH ×3 (07:20→16:17)
[2020-08-24] MEDS: Apixaban 5 MG TABLET PO SCH ×2 (07:52→21:13)
[2020-08-24] MEDS: metOLazone 5 MG TABLET PO SCH ×2 (07:52→21:12)
[2020-08-24] MEDS: Aspirin Enteric Coated 81 MG Tablet PO SCH (07:52)
[2020-08-24] MEDS: Vancomycin Oral Soln 125 MG/2.5 ML UDC PO SCH ×4 (07:52→21:13)
[2020-08-24] MEDS: allopurinoL 100 MG TABLET PO SCH (07:52)
[2020-08-24] MEDS: Magnesium Oxide 400 MG TABLET PO SCH (07:52)
[2020-08-24] MEDS: Cyanocobalamin (B-12) 1,000 MCG TABLET PO SCH (07:52)
[2020-08-24] MEDS: Lactobacillus 1 EACH CAP.SPRINK PO SCH ×2 (07:52→21:13)
[2020-08-24] MEDS: Fluticasone Propionate Nasal 50 MCG/SPRAY BOTTLE NS SCH ×2 (07:53→21:14)
[2020-08-24] MEDS: Azelastine 0.1% Nasal Spray 30 ML BOTTLE NS SCH ×2 (07:53→21:13)
[2020-08-24 10:07] LABS: Eosinophils # 0.2 K/mcL (0.0-0.6); Hematocrit 27.7 % (35.3-44.9); Hemoglobin 8.8 g/dL (11.5-15.4); Mean Corpuscular HGB Conc 31.8 g/dL (31.6-35.5); Mean Corpuscular Hemoglobin 36.4 pg (28.0-33.3); Mean Corpuscular Volume 114.5 fL (83.0-100.0); Mean Platelet Volume 9.6 fL (9.4-12.4); Platelet Count 141 K/mcL (140-400); Red Blood Count 2.42 M/mcL (3.82-4.97); Red Cell Distribution Width 20.1 % (11.5-14.5); White Blood Count 5.2 K/mcL (4.3-11.1)
[2020-08-24 10:36] LABS: Calcium 9.6 mg/dL (8.6-10.3); Magnesium 2.2 mg/dL (1.6-2.6); Potassium 3.4 mEq/L (3.5-5.1)
[2020-08-24] MEDS: Furosemide 40 MG/4 ML VIAL IVP SCH ×2 (11:05→22:52)
[2020-08-24] MEDS: Potassium Chloride Elixir 20 MEQ/15 ML UDC PO ONE (11:05)
[2020-08-24] MEDS: Levalbuterol Neb 0.63 MG/3 ML IH SCH ×3 (11:15→21:52)
[2020-08-24 13:32] LABS: Lymphocytes # 1.9 K/mcL (0.6-4.6); Monocytes # 0.5 K/mcL (0.0-1.3); Neutrophils # 2.6 K/mcL (1.6-8.9); Reactive Lymphocytes Present (Not Present)
[2020-08-24 13:33] LABS: Macrocytosis Present (Not Present); Platelet Estimate Normal (Normal)
[2020-08-24] MEDS: Piperacillin/Tazobactam 3.375 GM in 0.9 % Sodium Chloride Mini Bag 100 ML IVPB SCH (20:01)
[2020-08-24] MEDS: Albumin 25% 25gram/100mL 25 GM/100 ML IV.SOLN IVPB ONE (20:01)
[2020-08-25 03:33] LABS: Eosinophils # 0.2 K/mcL (0.0-0.6); Eosinophils % 5.3 %; Hematocrit 27.5 % (35.3-44.9); Hemoglobin 8.5 g/dL (11.5-15.4); Immature Granulocytes % 0.3 % (0-4); Lymphocytes # 1.4 K/mcL (0.6-4.6); Mean Corpuscular HGB Conc 30.9 g/dL (31.6-35.5); Mean Corpuscular Hemoglobin 35.4 pg (28.0-33.3); Mean Corpuscular Volume 114.6 fL (83.0-100.0); Mean Platelet Volume 9.1 fL (9.4-12.4); Monocytes # 0.3 K/mcL (0.0-1.3); Monocytes % 7.8 %; Platelet Count 133 K/mcL (140-400); Red Cell Distribution Width 20.4 % (11.5-14.5); Segmented Neutrophils % 49.6 %
[2020-08-25] MEDS: Levalbuterol Neb 0.63 MG/3 ML IH SCH ×4 (03:45→22:35)
[2020-08-25 03:51] LABS: Calcium 9.2 mg/dL (8.6-10.3); Magnesium 1.6 mg/dL (1.6-2.6); Potassium 3.5 mEq/L (3.5-5.1)
[2020-08-25 04:34] LABS: Anisocytosis 1+ (Not Present); Macrocytosis Present (Not Present); Platelet Estimate Normal (Normal); Poikilocytosis 1+ (Not Present); Polychromasia 1+ (Not Present)
[2020-08-25] MEDS: Insulin LISPRO 300 UNITS/3 ML VIAL SUBQ SCH ×3 (07:40→18:14)
[2020-08-25] MEDS ORDERED: Potassium Chloride Elixir 20 MEQ/15 ML UDC PO ONE (07:47)
[2020-08-25] MEDS: metOLazone 5 MG TABLET PO SCH ×2 (08:13→20:52)
[2020-08-25] MEDS: Lactobacillus 1 EACH CAP.SPRINK PO SCH ×2 (08:13→20:51)
[2020-08-25] MEDS: Aspirin Enteric Coated 81 MG Tablet PO SCH (08:13)
[2020-08-25] MEDS: Cyanocobalamin (B-12) 1,000 MCG TABLET PO SCH (08:13)
[2020-08-25] MEDS: allopurinoL 100 MG TABLET PO SCH (08:13)
[2020-08-25] MEDS: Magnesium Oxide 400 MG TABLET PO SCH (08:14)
[2020-08-25] MEDS: Azelastine 0.1% Nasal Spray 30 ML BOTTLE NS SCH ×2 (08:14→20:50)
[2020-08-25] MEDS: Apixaban 5 MG TABLET PO SCH ×2 (08:15→20:51)
[2020-08-25] MEDS: Fluticasone Propionate Nasal 50 MCG/SPRAY BOTTLE NS SCH ×2 (08:15→20:52)
[2020-08-25] MEDS: Vancomycin Oral Soln 125 MG/2.5 ML UDC PO SCH ×4 (08:16→20:52)
[2020-08-25] MEDS: Potassium Chloride Elixir 20 MEQ/15 ML UDC PO ONE (08:16)
[2020-08-25] MEDS: Pantoprazole 40 MG VIAL IVP SCH (08:26)
[2020-08-25] MEDS: Furosemide 40 MG/4 ML VIAL IVP SCH ×2 (10:50→22:55)
[2020-08-25] MEDS ORDERED: acetaZOLAMIDE 250 MG TABLET PO ONE (13:14)
[2020-08-26] MEDS: Levalbuterol Neb 0.63 MG/3 ML IH SCH ×4 (03:56→22:58)
[2020-08-26 04:44] LABS: Basophils # 0.1 K/mcL (0.0-0.2); Basophils % 0.9 %; Eosinophils # 0.2 K/mcL (0.0-0.6); Eosinophils % 3.3 %; Hematocrit 29.3 % (35.3-44.9); Immature Granulocytes % 0.4 % (0-4); Lymphocytes # 1.7 K/mcL (0.6-4.6); Lymphocytes % 31.4 %; Mean Corpuscular HGB Conc 30.7 g/dL (31.6-35.5); Mean Corpuscular Hemoglobin 35.2 pg (28.0-33.3); Mean Corpuscular Volume 114.5 fL (83.0-100.0); Mean Platelet Volume 9.5 fL (9.4-12.4); Monocytes # 0.4 K/mcL (0.0-1.3); Monocytes % 6.9 %; Neutrophils # 3.1 K/mcL (1.6-8.9); Platelet Count 162 K/mcL (140-400); Red Blood Count 2.56 M/mcL (3.82-4.97); Red Cell Distribution Width 20.6 % (11.5-14.5); Segmented Neutrophils % 57.1 %; White Blood Count 5.4 K/mcL (4.3-11.1)
[2020-08-26 05:14] LABS: Anisocytosis 1+ (Not Present); Macrocytosis Present (Not Present); Platelet Estimate Normal (Normal); Poikilocytosis 1+ (Not Present)
[2020-08-26 05:18] LABS: Calcium 9.6 mg/dL (8.6-10.3); Magnesium 1.7 mg/dL (1.6-2.6); Potassium 3.7 mEq/L (3.5-5.1)
[2020-08-26] MEDS: Insulin LISPRO 300 UNITS/3 ML VIAL SUBQ SCH ×3 (07:28→16:14)
[2020-08-26] MEDS: Cyanocobalamin (B-12) 1,000 MCG TABLET PO SCH (08:28)
[2020-08-26] MEDS: Lactobacillus 1 EACH CAP.SPRINK PO SCH ×2 (08:28→21:04)
[2020-08-26] MEDS: Aspirin Enteric Coated 81 MG Tablet PO SCH (08:28)
[2020-08-26] MEDS: Magnesium Oxide 400 MG TABLET PO SCH (08:28)
[2020-08-26] MEDS: allopurinoL 100 MG TABLET PO SCH (08:28)
[2020-08-26] MEDS: Apixaban 5 MG TABLET PO SCH ×2 (08:29→21:04)
[2020-08-26] MEDS: Pantoprazole 40 MG VIAL IVP SCH (08:30)
[2020-08-26] MEDS: Vancomycin Oral Soln 125 MG/2.5 ML UDC PO SCH ×4 (08:30→21:03)
[2020-08-26] MEDS: Fluticasone Propionate Nasal 50 MCG/SPRAY BOTTLE NS SCH ×2 (08:30→21:01)
[2020-08-26] MEDS: Azelastine 0.1% Nasal Spray 30 ML BOTTLE NS SCH ×2 (08:31→21:02)
[2020-08-26] MEDS: Acetaminophen 325 MG TABLET PO PRN (16:32)
[2020-08-26] MEDS ORDERED: Furosemide 40 MG/4 ML VIAL IVP SCH (21:00)
[2020-08-27] MEDS: Levalbuterol Neb 0.63 MG/3 ML IH SCH ×4 (03:47→20:13)
[2020-08-27 03:48] LABS: Basophils # 0.1 K/mcL (0.0-0.2); Basophils % 0.9 %; Eosinophils # 0.3 K/mcL (0.0-0.6); Eosinophils % 4.9 %; Hematocrit 28.7 % (35.3-44.9); Hemoglobin 9.1 g/dL (11.5-15.4); Immature Granulocytes % 0.6 % (0-4); Lymphocytes # 2.3 K/mcL (0.6-4.6); Mean Corpuscular HGB Conc 31.7 g/dL (31.6-35.5); Mean Corpuscular Hemoglobin 36.3 pg (28.0-33.3); Mean Corpuscular Volume 114.3 fL (83.0-100.0); Mean Platelet Volume 9.5 fL (9.4-12.4); Monocytes # 0.5 K/mcL (0.0-1.3); Monocytes % 8.8 %; Neutrophils # 2.3 K/mcL (1.6-8.9); Platelet Count 148 K/mcL (140-400); Red Blood Count 2.51 M/mcL (3.82-4.97); Red Cell Distribution Width 20.5 % (11.5-14.5); Segmented Neutrophils % 42.8 %; White Blood Count 5.4 K/mcL (4.3-11.1)
[2020-08-27 03:51] LABS: VBG HCO3 38 mEq/L (21-27); VBG PCO2 57 mmHg (41-51); VBG PH 7.43 pH Units (7.32-7.42); VBG PO2 148 mmHg (25-50)
[2020-08-27 04:04] LABS: Anisocytosis 1+ (Not Present); Platelet Estimate Normal (Normal); Polychromasia 1+ (Not Present)
[2020-08-27 04:05] LABS: Poikilocytosis 1+ (Not Present)
[2020-08-27 04:22] LABS: Calcium 9.4 mg/dL (8.6-10.3); Magnesium 1.5 mg/dL (1.6-2.6); Potassium 3.3 mEq/L (3.5-5.1)
[2020-08-27] MEDS: Aspirin Enteric Coated 81 MG Tablet PO SCH (08:48)
[2020-08-27] MEDS: Magnesium Oxide 400 MG TABLET PO SCH (08:48)
[2020-08-27] MEDS: Lactobacillus 1 EACH CAP.SPRINK PO SCH ×2 (08:48→19:57)
[2020-08-27] MEDS: Apixaban 5 MG TABLET PO SCH ×2 (08:48→19:57)
[2020-08-27] MEDS: allopurinoL 100 MG TABLET PO SCH (08:49)
[2020-08-27] MEDS: Cyanocobalamin (B-12) 1,000 MCG TABLET PO SCH (08:49)
[2020-08-27] MEDS: Pantoprazole 40 MG VIAL IVP SCH (08:49)
[2020-08-27] MEDS: Insulin LISPRO 300 UNITS/3 ML VIAL SUBQ SCH ×3 (08:50→16:36)
[2020-08-27] MEDS: Azelastine 0.1% Nasal Spray 30 ML BOTTLE NS SCH ×2 (08:53→19:58)
[2020-08-27] MEDS: Fluticasone Propionate Nasal 50 MCG/SPRAY BOTTLE NS SCH ×2 (08:53→19:58)
[2020-08-27] MEDS ORDERED: ETANERCEPT 50 MG/ML SQ SCH ×2 (09:00→14:30)
[2020-08-27] MEDS: Furosemide 20 MG/2 ML VIAL IVP SCH (19:57)
[2020-08-28] MEDS: Levalbuterol Neb 0.63 MG/3 ML IH SCH ×4 (03:48→22:46)
[2020-08-28] MEDS ORDERED: Benzonatate 100 MG CAPSULE PO PRN (04:10)
[2020-08-28 04:24] LABS: Calcium 9.3 mg/dL (8.6-10.3); Magnesium 1.6 mg/dL (1.6-2.6); Potassium 3.5 mEq/L (3.5-5.1)
[2020-08-28] MEDS: allopurinoL 100 MG TABLET PO SCH (08:56)
[2020-08-28] MEDS: Magnesium Oxide 400 MG TABLET PO SCH (08:56)
[2020-08-28] MEDS: Lactobacillus 1 EACH CAP.SPRINK PO SCH ×2 (08:56→21:12)
[2020-08-28] MEDS: Apixaban 5 MG TABLET PO SCH ×2 (08:56→21:13)
[2020-08-28] MEDS: Cyanocobalamin (B-12) 1,000 MCG TABLET PO SCH (08:56)
[2020-08-28] MEDS: Aspirin Enteric Coated 81 MG Tablet PO SCH (08:56)
[2020-08-28] MEDS: Furosemide 20 MG/2 ML VIAL IVP SCH (08:57)
[2020-08-28] MEDS: Fluticasone Propionate Nasal 50 MCG/SPRAY BOTTLE NS SCH ×2 (09:00→21:14)
[2020-08-28] MEDS: Azelastine 0.1% Nasal Spray 30 ML BOTTLE NS SCH ×2 (09:00→21:14)
[2020-08-28] MEDS: Acetaminophen 325 MG TABLET PO PRN ×2 (09:00→17:39)
[2020-08-28] MEDS: Insulin LISPRO 300 UNITS/3 ML VIAL SUBQ SCH ×3 (09:01→16:17)
[2020-08-28] MEDS ORDERED: Acetaminophen IV 1,000 MG/100 ML BAG IVPB ONE (10:16)
[2020-08-28] MEDS ORDERED: *HR* OxyCODONE/APAP 5/325 TABLET PO ONE (12:48)
[2020-08-28] MEDS ORDERED: Indomethacin 25 MG CAPSULE PO SCH (20:30)
[2020-08-28] MEDS: acetaZOLAMIDE 250 MG TABLET PO SCH (21:13)
[2020-08-28] MEDS: Latanoprost 2.5 ML BOTTLE BOTH EYES SCH (21:15)
[2020-08-29] MEDS: Acetaminophen 325 MG TABLET PO PRN (03:41)
[2020-08-29] MEDS: Levalbuterol Neb 0.63 MG/3 ML IH SCH ×4 (04:02→21:17)
[2020-08-29 04:27] LABS: Calcium 9.2 mg/dL (8.6-10.3); Magnesium 1.7 mg/dL (1.6-2.6); Potassium 3.4 mEq/L (3.5-5.1)
[2020-08-29] MEDS: Insulin LISPRO 300 UNITS/3 ML VIAL SUBQ SCH ×3 (07:52→17:36)
[2020-08-29] MEDS ORDERED: Furosemide 20 MG/2 ML VIAL IVP SCH (09:00)
[2020-08-29] MEDS: allopurinoL 100 MG TABLET PO SCH (09:58)
[2020-08-29] MEDS: Lactobacillus 1 EACH CAP.SPRINK PO SCH ×2 (09:59→20:50)
[2020-08-29] MEDS: acetaZOLAMIDE 250 MG TABLET PO SCH ×2 (09:59→20:50)
[2020-08-29] MEDS: Aspirin Enteric Coated 81 MG Tablet PO SCH (09:59)
[2020-08-29] MEDS: Cyanocobalamin (B-12) 1,000 MCG TABLET PO SCH (09:59)
[2020-08-29] MEDS: Indomethacin 25 MG CAPSULE PO SCH ×2 (09:59→17:35)
[2020-08-29] MEDS: Magnesium Oxide 400 MG TABLET PO SCH (09:59)
[2020-08-29] MEDS: Apixaban 5 MG TABLET PO SCH ×2 (09:59→20:50)
[2020-08-29] MEDS: Fluticasone Propionate Nasal 50 MCG/SPRAY BOTTLE NS SCH ×2 (10:03→20:50)
[2020-08-29] MEDS: Azelastine 0.1% Nasal Spray 30 ML BOTTLE NS SCH ×2 (10:03→20:50)
[2020-08-29] MEDS: PrednisoLONE Acetate 1% Opth 5 ML BOTTLE RIGHT EYE SCH ×4 (10:04→20:51)
[2020-08-29] MEDS: Latanoprost 2.5 ML BOTTLE BOTH EYES SCH (20:52)
[2020-08-30] MEDS: Levalbuterol Neb 0.63 MG/3 ML IH SCH ×2 (03:04→11:11)
[2020-08-30 04:34] LABS: Basophils % 0.6 %; Eosinophils # 0.2 K/mcL (0.0-0.6); Eosinophils % 3.5 %; Hematocrit 28.8 % (35.3-44.9); Hemoglobin 9.2 g/dL (11.5-15.4); Immature Granulocytes % 0.2 % (0-4); Lymphocytes # 1.9 K/mcL (0.6-4.6); Lymphocytes % 34.5 %; Mean Corpuscular HGB Conc 31.9 g/dL (31.6-35.5); Mean Corpuscular Hemoglobin 36.5 pg (28.0-33.3); Mean Corpuscular Volume 114.3 fL (83.0-100.0); Mean Platelet Volume 9.8 fL (9.4-12.4); Monocytes # 0.5 K/mcL (0.0-1.3); Monocytes % 8.8 %; Neutrophils # 2.9 K/mcL (1.6-8.9); Platelet Count 160 K/mcL (140-400); Red Blood Count 2.52 M/mcL (3.82-4.97); Red Cell Distribution Width 19.8 % (11.5-14.5); Segmented Neutrophils % 52.4 %; White Blood Count 5.5 K/mcL (4.3-11.1)
[2020-08-30 04:54] LABS: Magnesium 1.7 mg/dL (1.6-2.6); Phosphorous 4.1 mg/dL (2.7-4.5); Potassium 3.4 mEq/L (3.5-5.1)
[2020-08-30 04:57] LABS: Anisocytosis 2+ (Not Present); Macrocytosis Present (Not Present); Platelet Estimate Normal (Normal)
[2020-08-30] MEDS: Insulin LISPRO 300 UNITS/3 ML VIAL SUBQ SCH ×2 (08:17→11:55)
[2020-08-30] MEDS: Lactobacillus 1 EACH CAP.SPRINK PO SCH (08:20)
[2020-08-30] MEDS: allopurinoL 100 MG TABLET PO SCH (08:20)
[2020-08-30] MEDS: acetaZOLAMIDE 250 MG TABLET PO SCH (08:20)
[2020-08-30] MEDS: Aspirin Enteric Coated 81 MG Tablet PO SCH (08:20)
[2020-08-30] MEDS: Magnesium Oxide 400 MG TABLET PO SCH (08:20)
[2020-08-30] MEDS: Indomethacin 25 MG CAPSULE PO SCH (08:20)
[2020-08-30] MEDS: Azelastine 0.1% Nasal Spray 30 ML BOTTLE NS SCH (08:21)
[2020-08-30] MEDS: Cyanocobalamin (B-12) 1,000 MCG TABLET PO SCH (08:21)
[2020-08-30] MEDS: Fluticasone Propionate Nasal 50 MCG/SPRAY BOTTLE NS SCH (08:21)
[2020-08-30] MEDS: Apixaban 5 MG TABLET PO SCH (08:21)
[2020-08-30] MEDS: PrednisoLONE Acetate 1% Opth 5 ML BOTTLE RIGHT EYE SCH ×2 (08:21→11:56)
[2020-08-30 11:51] VITALS: BP 92/59
== END 2020-08-30 18:35 | disposition home or self-care (01) | DRG 871 ==
LOC: 2ANU 08:14 → EMEROOARM 08:14 → SUATTDRO 11:28 → 2ANU 12:16 → SUATTDRO 08-17 18:33
PROVIDERS: ADMIT Internal Medicine; ATTEND Internal Medicine

== ENCOUNTER 2021-02-06 01:57 | Observation (INO) ==
[2021-02-06 02:35] LABS: Hematocrit 29.9 % (35.3-44.9); Hemoglobin 9.8 g/dL (11.5-15.4); Immature Platelets 0.6 % (1.1-6.1); Mean Corpuscular HGB Conc 32.8 g/dL (31.6-35.5); Mean Corpuscular Volume 112.8 fL (83.0-100.0); Mean Platelet Volume 10.5 fL (9.4-12.4); Red Blood Count 2.65 M/mcL (3.82-4.97); Red Cell Distribution Width 15.2 % (11.5-14.5); White Blood Count 4.6 K/mcL (4.3-11.1)
[2021-02-06 02:47] LABS: Calcium 8.6 mg/dL (8.6-10.3); Potassium 3.4 mEq/L (3.5-5.1)
[2021-02-06] MEDS ORDERED: 0.9 % Sodium Chloride 500 ML IV ONE (03:00)
[2021-02-06 03:10] LABS: Albumin 3.2 g/dL (3.5-5.7); Albumin/Globulin Ratio 1.4 (1.1-2.2); Bilirubin,Direct 0.3 mg/dL (0.0-0.2); Bilirubin,Total 1.3 mg/dL (0.3-1.0); Globulin 2.3 g/dL (2.4-3.5); Total Protein 5.5 g/dL (6.4-8.9)
[2021-02-06 03:24] LABS: INR 1.4; Prothrombin Time 15.9 Seconds (9.4-12.1)
[2021-02-06 03:27] LABS: Activated Partial Thrombo Time 28.8 Seconds (26.0-36.0)
[2021-02-06] MEDS ORDERED: Isovue-370 500 ML BOTTLE IVP ONE (03:45)
[2021-02-06 05:23] LABS: Bilirubin,Urine Negative (Negative); Blood,Urine Negative (Negative); Clarity,Urine Clear (Clear); Color,Urine Light-Yellow (Yellow); Glucose,Urine (UA) Normal (Normal); Ketones,Urine Negative (Negative); Leukocyte Esterase,Urine Negative (Negative); Nitrite,Urine Negative (Negative); PH,Urine 5.5 pH Units (5.0-8.0); Protein,Urine Negative (Neg-Trace); Specific Gravity,Urine 1.022 (1.010-1.025); Urobilinogen,Urine Normal (Normal)
[2021-02-06] MEDS ORDERED: Acetaminophen 325 MG TABLET PO PRN (07:40)
[2021-02-06] MEDS ORDERED: Ondansetron 4 MG/2 ML VIAL IVP PRN (07:40)
[2021-02-06] MEDS ORDERED: Naloxone 0.4 MG/ML INJ IVP PRN (07:40)
[2021-02-06 09:52] LABS: Adenovirus Not Detected (Not Detect); Bordetella Pertussis Not Detected (Not Detect); Chlamydophila pneumoniae Not Detected (Not Detect); Coronavirus 229E Not Detected (Not Detect); Coronavirus HKU1 Not Detected (Not Detect); Coronavirus NL63 Not Detected (Not Detect); Coronavirus OC43 Not Detected (Not Detect); Human Metapneumovirus Not Detected (Not Detect); Human Rhinovirus/Enterovirus Not Detected (Not Detect); Influenza A Subtype 2009 H1 Not Detected (Not Detect); Influenza B Not Detected (Not Detect); Mycoplasma pneumoniae Not Detected (Not Detect); Parainfluenza Virus 1 Not Detected (Not Detect); Parainfluenza Virus 2 Not Detected (Not Detect); Parainfluenza Virus 3 Not Detected (Not Detect); Parainfluenza Virus 4 Not Detected (Not Detect); Respiratory Syncytial Virus Not Detected (Not Detect); SARS-CoV-2 Not Detected (Not Detect)
[2021-02-06] MEDS ORDERED: *HR* Dextrose 50 % in Water (Vial) 50 ML VIAL IVP PRN (13:40)
[2021-02-06] MEDS ORDERED: Dextrose Gel 15 GM/37.5 ML TUBE PO PRN ×2 (13:40)
[2021-02-06] MEDS ORDERED: D5% in Water 1,000 ML IVC PRN (13:40)
[2021-02-06] MEDS ORDERED: *HR* LORazepam 2 MG/ML VIAL IVP PRN ×3 (13:41)
[2021-02-06 13:47] LABS: Adenovirus F 40/41 PCR Not detected (Not detect); Astrovirus PCR Not detected (Not detect); C.difficile Toxin A/B Gene PCR Not detected (Not detect); Campylobacter by PCR Not detected (Not detect); Cryptosporidium by PCR Not detected (Not detect); Cyclospora cayetanensis PCR Not detected (Not detect); E. coli O157 by PCR Not detected (Not detect); Entamoeba histolytica PCR Not detected (Not detect); Enteroaggregative E.coli(EAEC) Not detected (Not detect); Enteropathogenic E.coli(EPEC) Not detected (Not detect); Enterotoxigenic E.coli (ETEC) Not detected (Not detect); Giardia lamblia PCR Not detected (Not detect); Norovirus GI/GII PCR Not detected (Not detect); Plesiomonas shigelloides PCR Not detected (Not detect); Rotavirus A PCR Not detected (Not detect); Salmonella PCR Not detected (Not detect); Sapovirus PCR Not detected (Not detect); Shig/EnteroinvasiveE coli EIEC Not detected (Not detect); Shigalike tox-prod E coli STEC Not detected (Not detect); Vibrio PCR Not detected (Not detect); Vibrio cholerae PCR Not detected (Not detect); Yersinia enterocolitica PCR Not detected (Not detect)
[2021-02-06] MEDS ORDERED: Thiamine (B-1) 100 MG, Folic Acid 1 MG, MVI, adult with vitamin K 10 ML in 0.9 % Sodi... IVPB SCH (18:00)
[2021-02-06] MEDS: Insulin LISPRO 300 UNITS/3 ML VIAL SUBQ SCH ×2 (18:16→22:35)
[2021-02-06] MEDS: Fluticasone Propionate Nasal 50 MCG/SPRAY BOTTLE NS SCH (20:23)
[2021-02-06] MEDS: acetaZOLAMIDE 250 MG TABLET PO SCH (20:24)
[2021-02-06] MEDS: Latanoprost 2.5 ML BOTTLE BOTH EYES SCH (20:25)
[2021-02-07 01:27] LABS: Immature Granulocytes % 0.3 % (0-4); Red Cell Distribution Width 15.3 % (11.5-14.5)
[2021-02-07 01:29] LABS: Eosinophils # 0.1 K/mcL (0.0-0.6); Eosinophils % 4.2 %; Hematocrit 25.4 % (35.3-44.9); Hemoglobin 8.4 g/dL (11.5-15.4); Immature Platelets 0.9 % (1.1-6.1); Lymphocytes # 1.1 K/mcL (0.6-4.6); Lymphocytes % 34.5 %; Mean Corpuscular HGB Conc 33.1 g/dL (31.6-35.5); Mean Corpuscular Hemoglobin 37.2 pg (28.0-33.3); Mean Corpuscular Volume 112.4 fL (83.0-100.0); Mean Platelet Volume 10.1 fL (9.4-12.4); Monocytes # 0.3 K/mcL (0.0-1.3); Monocytes % 8.4 %; Neutrophils # 1.6 K/mcL (1.6-8.9); Red Blood Count 2.26 M/mcL (3.82-4.97); Segmented Neutrophils % 52.6 %; White Blood Count 3.1 K/mcL (4.3-11.1)
[2021-02-07 01:33] LABS: Platelet Count 68 K/mcL (140-400)
[2021-02-07 01:34] LABS: Anisocytosis 1+ (Not Present); Macrocytosis Present (Not Present); Platelet Estimate Decreased (Normal)
[2021-02-07 01:44] LABS: Calcium 7.9 mg/dL (8.6-10.3); Magnesium 1.8 mg/dL (1.6-2.6); Potassium 3.5 mEq/L (3.5-5.1)
[2021-02-07 03:42] LABS: Estimated Average Glucose 103 mg/dl; Hemoglobin A1C 5.2 %
[2021-02-07] MEDS ORDERED: Ringers Solution, Lactated 500 ML IVC SCH (08:15)
[2021-02-07] MEDS: allopurinoL 100 MG TABLET PO SCH (10:10)
[2021-02-07] MEDS: Folic Acid 1 MG TABLET PO SCH (10:10)
[2021-02-07] MEDS: Cyanocobalamin (B-12) 1,000 MCG TABLET PO SCH (10:12)
[2021-02-07] MEDS: Insulin LISPRO 300 UNITS/3 ML VIAL SUBQ SCH ×4 (10:14→20:49)
[2021-02-07] MEDS: Fluticasone Propionate Nasal 50 MCG/SPRAY BOTTLE NS SCH ×2 (10:14→20:51)
[2021-02-07 10:26] LABS: Hematocrit 25.9 % (35.3-44.9); Hemoglobin 8.7 g/dL (11.5-15.4)
[2021-02-07 13:06] LABS: ABG Base Excess -10 mEq/L (-2 to 3); ABG HCO3 14 mEq/L (21-27); ABG Oxygen Saturation 97 % (95-98); ABG PCO2 23 mmHg (35-45); ABG PH 7.39 pH Units (7.32-7.45); ABG PO2 87 mmHg (85-104); ABG TCO2 14 mEq/L (20-26)
[2021-02-07 14:42] LABS: Hematocrit 25.8 % (35.3-44.9); Hemoglobin 8.4 g/dL (11.5-15.4)
[2021-02-07] MEDS: metroNIDAZOLE 500 MG TABLET PO SCH ×2 (18:39→20:46)
[2021-02-07 20:20] LABS: Hematocrit 24.8 % (35.3-44.9); Hemoglobin 8.2 g/dL (11.5-15.4)
[2021-02-07] MEDS: Lactobacillus 1 EACH CAP.SPRINK PO SCH (20:46)
[2021-02-07] MEDS: Latanoprost 2.5 ML BOTTLE BOTH EYES SCH (20:53)
[2021-02-08 01:02] LABS: Hemoglobin 7.8 g/dL (11.5-15.4); Immature Granulocytes % 0.3 % (0-4)
[2021-02-08 01:04] LABS: Eosinophils # 0.1 K/mcL (0.0-0.6); Eosinophils % 3.8 %; Hematocrit 23.9 % (35.3-44.9); Immature Platelets 0.8 % (1.1-6.1); Lymphocytes # 1.2 K/mcL (0.6-4.6); Lymphocytes % 37.2 %; Mean Corpuscular HGB Conc 32.6 g/dL (31.6-35.5); Mean Corpuscular Hemoglobin 37.1 pg (28.0-33.3); Mean Corpuscular Volume 113.8 fL (83.0-100.0); Mean Platelet Volume 10.4 fL (9.4-12.4); Monocytes # 0.4 K/mcL (0.0-1.3); Neutrophils # 1.5 K/mcL (1.6-8.9); Red Cell Distribution Width 14.9 % (11.5-14.5); Segmented Neutrophils % 47.7 %; White Blood Count 3.2 K/mcL (4.3-11.1)
[2021-02-08 01:10] LABS: Platelet Count 71 K/mcL (140-400)
[2021-02-08 01:21] LABS: Calcium 7.6 mg/dL (8.6-10.3); Magnesium 1.4 mg/dL (1.6-2.6); Phosphorous 2.7 mg/dL (2.7-4.5); Potassium 3.3 mEq/L (3.5-5.1)
[2021-02-08 01:47] LABS: Macrocytosis Present (Not Present); Platelet Estimate Slight Decrease (Normal)
[2021-02-08 01:48] LABS: Anisocytosis 1+ (Not Present); Toxic Granulation Present (Not Present)
[2021-02-08] MEDS: metroNIDAZOLE 500 MG TABLET PO SCH ×3 (10:16→20:04)
[2021-02-08] MEDS: Apixaban 5 MG TABLET PO SCH ×2 (10:16→20:04)
[2021-02-08] MEDS: Lactobacillus 1 EACH CAP.SPRINK PO SCH ×2 (10:17→20:04)
[2021-02-08] MEDS: Cyanocobalamin (B-12) 1,000 MCG TABLET PO SCH (10:17)
[2021-02-08] MEDS: allopurinoL 100 MG TABLET PO SCH (10:18)
[2021-02-08] MEDS: Folic Acid 1 MG TABLET PO SCH (10:18)
[2021-02-08] MEDS: Insulin LISPRO 300 UNITS/3 ML VIAL SUBQ SCH ×4 (11:50→20:05)
[2021-02-08] MEDS: Fluticasone Propionate Nasal 50 MCG/SPRAY BOTTLE NS SCH ×2 (11:51→20:05)
[2021-02-08 15:02] LABS: Hematocrit 25.6 % (35.3-44.9); Hemoglobin 8.3 g/dL (11.5-15.4)
[2021-02-08] MEDS: Latanoprost 2.5 ML BOTTLE BOTH EYES SCH (20:05)
[2021-02-09 00:22] LABS: Hematocrit 24.7 % (35.3-44.9); Hemoglobin 8.2 g/dL (11.5-15.4)
[2021-02-09 08:05] VITALS: O2SAT 96
[2021-02-09] MEDS: metroNIDAZOLE 500 MG TABLET PO SCH (08:06)
[2021-02-09] MEDS: Cyanocobalamin (B-12) 1,000 MCG TABLET PO SCH (08:06)
[2021-02-09] MEDS: Lactobacillus 1 EACH CAP.SPRINK PO SCH (08:06)
[2021-02-09] MEDS: Folic Acid 1 MG TABLET PO SCH (08:06)
[2021-02-09] MEDS: allopurinoL 100 MG TABLET PO SCH (08:06)
[2021-02-09] MEDS: Apixaban 5 MG TABLET PO SCH (08:07)
[2021-02-09] MEDS: Insulin LISPRO 300 UNITS/3 ML VIAL SUBQ SCH ×2 (08:07→12:43)
[2021-02-09] MEDS: Fluticasone Propionate Nasal 50 MCG/SPRAY BOTTLE NS SCH (08:07)
[2021-02-09 11:14] VITALS: BP 154/67; PULSE 98; TEMP 98.1
[2021-02-09] MEDS: acetaZOLAMIDE 250 MG TABLET PO SCH (11:19)
[2021-02-09 11:45] LABS: Basophils % 0.2 %; Eosinophils # 0.1 K/mcL (0.0-0.6); Eosinophils % 2.5 %; Hematocrit 25.9 % (35.3-44.9); Hemoglobin 8.9 g/dL (11.5-15.4); Immature Granulocytes % 0.4 % (0-4); Lymphocytes # 1.8 K/mcL (0.6-4.6); Lymphocytes % 34.4 %; Mean Corpuscular HGB Conc 34.4 g/dL (31.6-35.5); Mean Corpuscular Hemoglobin 38.7 pg (28.0-33.3); Mean Corpuscular Volume 112.6 fL (83.0-100.0); Mean Platelet Volume 9.7 fL (9.4-12.4); Monocytes # 0.4 K/mcL (0.0-1.3); Monocytes % 8.4 %; Neutrophils # 2.8 K/mcL (1.6-8.9); Red Cell Distribution Width 15.4 % (11.5-14.5); Segmented Neutrophils % 54.1 %
[2021-02-09 11:47] LABS: Platelet Count 79 K/mcL (140-400); White Blood Count 5.1 K/mcL (4.3-11.1)
[2021-02-09 12:08] LABS: Calcium 8.2 mg/dL (8.6-10.3); Magnesium 1.3 mg/dL (1.6-2.6); Phosphorous 1.8 mg/dL (2.7-4.5); Potassium 3.9 mEq/L (3.5-5.1)
== END 2021-02-09 14:06 | disposition home or self-care (01) ==
LOC: SUATTDRO → 3NENU 01:57 → EMEROOARM 01:57 → SUATTDRO 08:22 → 3NENU 09:50
PROVIDERS: ADMIT Pharmacist; ATTEND Internal Medicine

== ENCOUNTER 2021-12-10 22:26 | Observation (INO) ==
[2021-12-11 01:14] LABS: Hematocrit 25.7 % (35.3-44.9); Hemoglobin 8.2 g/dL (11.5-15.4); Mean Corpuscular HGB Conc 31.9 g/dL (31.6-35.5); Mean Corpuscular Hemoglobin 38.7 pg (28.0-33.3); Mean Corpuscular Volume 121.2 fL (83.0-100.0); Mean Platelet Volume 9.2 fL (9.4-12.4); Platelet Count 76 K/mcL (140-400); Red Blood Count 2.12 M/mcL (3.82-4.97); White Blood Count 12.1 K/mcL (4.3-11.1)
[2021-12-11 01:31] LABS: Anisocytosis 1+ (Not Present); Lymphocytes # 0.2 K/mcL (0.6-4.6); Macrocytosis Present (Not Present); Neutrophils # 11.9 K/mcL (1.6-8.9); Platelet Estimate Decreased (Normal); Poikilocytosis 1+ (Not Present)
[2021-12-11 01:32] LABS: Microcytosis Present (Not Present); Schistocytes 1+ (Not Present)
[2021-12-11] MEDS ORDERED: Iopamidol - 370 500 ML MLS IVP ONE ×2 (01:33→03:56)
[2021-12-11 01:35] LABS: Albumin/Globulin Ratio 1.3 (1.1-2.2); Bilirubin,Direct 0.1 mg/dL (0.0-0.2); Bilirubin,Indirect 0.7 mg/dL (0.0-1.0); Bilirubin,Total 0.8 mg/dL (0.3-1.0); Calcium 7.7 mg/dL (8.6-10.3); Globulin 2.3 g/dL (2.4-3.5); Potassium 3.9 mEq/L (3.5-5.1); Total Protein 5.3 g/dL (6.4-8.9)
[2021-12-11 04:06] LABS: Bilirubin,Urine Negative (Negative); Blood,Urine Negative (Negative); Clarity,Urine Clear (Clear); Color,Urine Light-Yellow (Yellow); Glucose,Urine (UA) Normal (Normal); Ketones,Urine Negative (Negative); Leukocyte Esterase,Urine Negative (Negative); Nitrite,Urine Negative (Negative); Protein,Urine Trace mg/dL (Neg-Trace); Specific Gravity,Urine > 1.030 (1.010-1.025); Urobilinogen,Urine Normal (Normal)
[2021-12-11 04:14] LABS: Bacteria,Urine Few per hpf (None-Few); Mucus,Urine Few per lpf (None-Few); Squamous Epithelial Cell,Urine Moderate per hpf (None-Few); WBC,Urine 0-3 per hpf (0-3)
[2021-12-11] MEDS ORDERED: Pantoprazole 40 MG in 0.9 % Sodium Chloride Mini Bag 100 ML IVC SCH (04:15)
[2021-12-11] MEDS ORDERED: Ampicillin/Sulbactam 1,500 MG in 0.9 % Sodium Chloride Mini Bag 100 ML IVPB ONE (05:31)
[2021-12-11] MEDS ORDERED: Vancomycin 1,250 MG/262.5 ML IV.SOLN IVPB ONE (05:32)
[2021-12-11] MEDS ORDERED: Ondansetron 4 MG/2 ML VIAL IVP PRN (07:19)
[2021-12-11] MEDS ORDERED: Naloxone 0.4 MG/ML INJ IVP PRN (07:19)
[2021-12-11] MEDS: 0.9 % Sodium Chloride 1,000 ML IVC SCH (09:43)
[2021-12-11] MEDS: Pantoprazole 40 MG VIAL IVP SCH (18:28)
[2021-12-11 19:23] LABS: Hematocrit 21.2 % (35.3-44.9); Hemoglobin 6.9 g/dL (11.5-15.4)
[2021-12-11] MEDS ORDERED: 0.9 % Sodium Chloride 250 ML ONE (22:58)
[2021-12-12] MEDS: 0.9 % Sodium Chloride 1,000 ML IVC SCH ×4 (00:29→23:48)
[2021-12-12] MEDS: Pantoprazole 40 MG VIAL IVP SCH ×2 (05:00→18:27)
[2021-12-12] MEDS ORDERED: Nystatin POWDER 30 GM BOTTLE TP PRN (07:21)
[2021-12-12 07:33] LABS: BUN/Creatinine Ratio 29 (6-26); Blood Urea Nitrogen 29 mg/dL (8-23); Calcium 7.1 mg/dL (8.6-10.3); Carbon Dioxide 15 mEq/L (23-29); Chloride 123 mEq/L (98-107); Glucose 110 mg/dL (70-105); Osmolality,Calculated 306 (280-300); Potassium 3.1 mEq/L (3.5-5.1); Sodium 145 mEq/L (136-145); eGFR For African Americans > 60 (> 60); eGFR For Non-African Americans 53 (> 60)
[2021-12-12] MEDS: Fluticasone Propionate Nasal 50 MCG/SPRAY BOTTLE NS SCH ×2 (08:11→19:43)
[2021-12-12] MEDS: Folic Acid 1 MG TABLET PO SCH (08:11)
[2021-12-12] MEDS: Diphenoxylate/Atropine 1 TAB TABLET PO SCH (08:11)
[2021-12-12] MEDS: Magnesium Oxide 400 MG TABLET PO SCH (08:11)
[2021-12-12] MEDS: Cyanocobalamin (B-12) 1,000 MCG TABLET PO SCH (08:11)
[2021-12-12] MEDS: allopurinoL 100 MG TABLET PO SCH (08:12)
[2021-12-12] MEDS ORDERED: acetaZOLAMIDE 250 MG TABLET PO SCH (09:00)
[2021-12-12 09:50] LABS: Hemoglobin 7.7 g/dL (11.5-15.4); Red Cell Distribution Width 19.5 % (11.5-14.5)
[2021-12-12 09:52] LABS: Eosinophils # 0.1 K/mcL (0.0-0.6); Hematocrit 23.3 % (35.3-44.9); Immature Platelets 1.2 % (1.1-6.1); Mean Corpuscular Hemoglobin 36.3 pg (28.0-33.3); Mean Corpuscular Volume 109.9 fL (83.0-100.0); Mean Platelet Volume 10.8 fL (9.4-12.4); Red Blood Count 2.12 M/mcL (3.82-4.97); White Blood Count 4.9 K/mcL (4.3-11.1)
[2021-12-12 09:54] LABS: Platelet Count 40 K/mcL (140-400)
[2021-12-12 10:45] LABS: Dohle Bodies Present (Not Present); Lymphocytes # 0.3 K/mcL (0.6-4.6); Neutrophils # 4.5 K/mcL (1.6-8.9); Toxic Granulation Present (Not Present)
[2021-12-12 10:46] LABS: Platelet Estimate Decreased (Normal)
[2021-12-12 16:18] LABS: Hematocrit 23.9 % (35.3-44.9); Hemoglobin 7.9 g/dL (11.5-15.4)
[2021-12-12] MEDS: Latanoprost 2.5 ML BOTTLE BOTH EYES SCH (19:44)
[2021-12-13 01:52] LABS: Hematocrit 23.9 % (35.3-44.9)
[2021-12-13 02:23] LABS: BUN/Creatinine Ratio 30 (6-26); Blood Urea Nitrogen 26 mg/dL (8-23); Calcium 6.6 mg/dL (8.6-10.3); Carbon Dioxide 14 mEq/L (23-29); Chloride 126 mEq/L (98-107); Glucose 112 mg/dL (70-105); Osmolality,Calculated 304 (280-300); Potassium 3.9 mEq/L (3.5-5.1); Sodium 144 mEq/L (136-145); eGFR For African Americans > 60 (> 60); eGFR For Non-African Americans > 60 (> 60)
[2021-12-13] MEDS ORDERED: Calcium Gluconate 1gm/50mL 1 GM/50 ML BAG IVPB PRN (03:43)
[2021-12-13] MEDS: Pantoprazole 40 MG VIAL IVP SCH ×2 (05:08→18:30)
[2021-12-13] MEDS: allopurinoL 100 MG TABLET PO SCH (08:07)
[2021-12-13] MEDS: Cyanocobalamin (B-12) 1,000 MCG TABLET PO SCH (08:07)
[2021-12-13] MEDS: Folic Acid 1 MG TABLET PO SCH (08:08)
[2021-12-13] MEDS: Fluticasone Propionate Nasal 50 MCG/SPRAY BOTTLE NS SCH ×2 (08:11→19:39)
[2021-12-13] MEDS: 0.9 % Sodium Chloride 1,000 ML IVC SCH (08:13)
[2021-12-13] MEDS: Diphenoxylate/Atropine 1 TAB TABLET PO SCH (08:13)
[2021-12-13 09:13] LABS: C.difficile Toxin A/B Gene PCR Not detected (Not detect); Campylobacter by PCR Not detected (Not detect); Cryptosporidium by PCR Not detected (Not detect); Enteroaggregative E.coli(EAEC) Not detected (Not detect); Enteropathogenic E.coli(EPEC) Not detected (Not detect); Enterotoxigenic E.coli (ETEC) Not detected (Not detect); Plesiomonas shigelloides PCR Not detected (Not detect); Salmonella PCR Not detected (Not detect); Shig/EnteroinvasiveE coli EIEC Not detected (Not detect); Shigalike tox-prod E coli STEC Not detected (Not detect); Vibrio PCR Not detected (Not detect); Vibrio cholerae PCR Not detected (Not detect); Yersinia enterocolitica PCR Not detected (Not detect)
[2021-12-13 09:14] LABS: Adenovirus F 40/41 PCR Not detected (Not detect); Astrovirus PCR Not detected (Not detect); Cyclospora cayetanensis PCR Not detected (Not detect); Entamoeba histolytica PCR Not detected (Not detect); Giardia lamblia PCR Not detected (Not detect); Norovirus GI/GII PCR Not detected (Not detect); Rotavirus A PCR Not detected (Not detect); Sapovirus PCR Not detected (Not detect)
[2021-12-13] MEDS: Latanoprost 2.5 ML BOTTLE BOTH EYES SCH (19:40)
[2021-12-13] MEDS: Diphenoxylate/Atropine 1 TAB TABLET PO PRN (19:45)
[2021-12-14] MEDS: Pantoprazole 40 MG VIAL IVP SCH ×2 (05:17→17:50)
[2021-12-14 08:51] LABS: Basophils % 0.6 %; Eosinophils % 5.1 %
[2021-12-14 08:53] LABS: Eosinophils # 0.1 K/mcL (0.0-0.6); Hematocrit 23.2 % (35.3-44.9); Hemoglobin 7.8 g/dL (11.5-15.4); Immature Granulocytes % 0.6 % (0-4); Immature Platelets 2.2 % (1.1-6.1); Lymphocytes # 0.9 K/mcL (0.6-4.6); Mean Corpuscular HGB Conc 33.6 g/dL (31.6-35.5); Mean Corpuscular Hemoglobin 36.4 pg (28.0-33.3); Mean Corpuscular Volume 108.4 fL (83.0-100.0); Mean Platelet Volume 9.8 fL (9.4-12.4); Monocytes # 0.2 K/mcL (0.0-1.3); Monocytes % 13.5 %; Neutrophils # 0.5 K/mcL (1.6-8.9); Red Blood Count 2.14 M/mcL (3.82-4.97); Red Cell Distribution Width 18.5 % (11.5-14.5); Segmented Neutrophils % 30.2 %; White Blood Count 1.8 K/mcL (4.3-11.1)
[2021-12-14 09:04] LABS: Blood Urea Nitrogen 23 mg/dL (8-23); Calcium 7.1 mg/dL (8.6-10.3); Carbon Dioxide 15 mEq/L (23-29); Chloride 122 mEq/L (98-107); Glucose 92 mg/dL (70-105); Osmolality,Calculated 295 (280-300); Potassium 4.1 mEq/L (3.5-5.1); Sodium 141 mEq/L (136-145)
[2021-12-14 09:20] LABS: Platelet Count 29 K/mcL (140-400)
[2021-12-14 09:21] LABS: Platelet Estimate Marked Decrease (Normal)
[2021-12-14 09:22] LABS: Anisocytosis 1+ (Not Present); Macrocytosis Present (Not Present)
[2021-12-14] MEDS: allopurinoL 100 MG TABLET PO SCH (10:49)
[2021-12-14] MEDS: Diphenoxylate/Atropine 1 TAB TABLET PO SCH (10:49)
[2021-12-14] MEDS: Folic Acid 1 MG TABLET PO SCH (10:49)
[2021-12-14] MEDS: Cyanocobalamin (B-12) 1,000 MCG TABLET PO SCH (10:49)
[2021-12-14] MEDS: Fluticasone Propionate Nasal 50 MCG/SPRAY BOTTLE NS SCH ×2 (10:50→19:28)
[2021-12-14 12:58] LABS: BUN/Creatinine Ratio 26 (6-26); eGFR For African Americans > 60 (> 60); eGFR For Non-African Americans > 60 (> 60)
[2021-12-14] MEDS: Latanoprost 2.5 ML BOTTLE BOTH EYES SCH (19:30)
[2021-12-15] MEDS: Pantoprazole 40 MG VIAL IVP SCH ×2 (05:37→17:28)
[2021-12-15 08:28] LABS: Eosinophils # 0.1 K/mcL (0.0-0.6); Hemoglobin 7.6 g/dL (11.5-15.4); Immature Platelets 2.3 % (1.1-6.1); Lymphocytes # 1.2 K/mcL (0.6-4.6); Mean Corpuscular Hemoglobin 35.8 pg (28.0-33.3); Mean Corpuscular Volume 108.5 fL (83.0-100.0); Red Blood Count 2.12 M/mcL (3.82-4.97); Red Cell Distribution Width 17.9 % (11.5-14.5); White Blood Count 2.7 K/mcL (4.3-11.1)
[2021-12-15 08:37] LABS: Platelet Count 28 K/mcL (140-400)
[2021-12-15 08:43] LABS: BUN/Creatinine Ratio 21 (6-26); Blood Urea Nitrogen 19 mg/dL (8-23); Calcium 7.1 mg/dL (8.6-10.3); Carbon Dioxide 16 mEq/L (23-29); Chloride 121 mEq/L (98-107); Glucose 81 mg/dL (70-105); Osmolality,Calculated 291 (280-300); Potassium 4.4 mEq/L (3.5-5.1); Sodium 140 mEq/L (136-145); eGFR For African Americans > 60 (> 60); eGFR For Non-African Americans 59 (> 60)
[2021-12-15 08:58] LABS: Anisocytosis 1+ (Not Present); Macrocytosis Present (Not Present); Monocytes # 0.6 K/mcL (0.0-1.3); Neutrophils # 0.9 K/mcL (1.6-8.9); Platelet Estimate Marked Decrease (Normal)
[2021-12-15] MEDS: Folic Acid 1 MG TABLET PO SCH (09:02)
[2021-12-15] MEDS: Cyanocobalamin (B-12) 1,000 MCG TABLET PO SCH (09:03)
[2021-12-15] MEDS: allopurinoL 100 MG TABLET PO SCH (09:03)
[2021-12-15] MEDS: Fluticasone Propionate Nasal 50 MCG/SPRAY BOTTLE NS SCH ×2 (09:04→21:18)
[2021-12-15] MEDS: Diphenoxylate/Atropine 1 TAB TABLET PO SCH (09:06)
[2021-12-15] MEDS: Latanoprost 2.5 ML BOTTLE BOTH EYES SCH (21:19)
[2021-12-15] MEDS: Diphenoxylate/Atropine 1 TAB TABLET PO PRN (21:20)
[2021-12-16 03:31] LABS: Basophils % 0.6 %; Mean Corpuscular Hemoglobin 36.4 pg (28.0-33.3); Nucleated Red Blood Cells 0.4 /100 WBC (0)
[2021-12-16 03:33] LABS: Eosinophils # 0.1 K/mcL (0.0-0.6); Eosinophils % 1.9 %; Hematocrit 23.2 % (35.3-44.9); Hemoglobin 7.8 g/dL (11.5-15.4); Immature Granulocytes % 1.9 % (0-4); Immature Platelets 2.6 % (1.1-6.1); Lymphocytes # 1.4 K/mcL (0.6-4.6); Lymphocytes % 29.9 %; Mean Corpuscular HGB Conc 33.6 g/dL (31.6-35.5); Mean Corpuscular Volume 108.4 fL (83.0-100.0); Mean Platelet Volume 10.6 fL (9.4-12.4); Monocytes # 0.6 K/mcL (0.0-1.3); Monocytes % 12.3 %; Neutrophils # 2.5 K/mcL (1.6-8.9); Red Blood Count 2.14 M/mcL (3.82-4.97); Red Cell Distribution Width 17.7 % (11.5-14.5); Segmented Neutrophils % 53.4 %; White Blood Count 4.7 K/mcL (4.3-11.1)
[2021-12-16 03:44] LABS: BUN/Creatinine Ratio 18 (6-26); Blood Urea Nitrogen 18 mg/dL (8-23); Calcium 7.6 mg/dL (8.6-10.3); Carbon Dioxide 17 mEq/L (23-29); Chloride 118 mEq/L (98-107); Glucose 92 mg/dL (70-105); Osmolality,Calculated 292 (280-300); Potassium 4.5 mEq/L (3.5-5.1); Sodium 140 mEq/L (136-145); eGFR For African Americans > 60 (> 60); eGFR For Non-African Americans 53 (> 60)
[2021-12-16 04:01] LABS: Platelet Count 30 K/mcL (140-400)
[2021-12-16 04:22] LABS: Macrocytosis Present (Not Present); Platelet Estimate Marked Decrease (Normal); Polychromasia 1+ (Not Present)
[2021-12-16] MEDS: Pantoprazole 40 MG VIAL IVP SCH (05:54)
[2021-12-16] MEDS: Magnesium Oxide 400 MG TABLET PO SCH (08:40)
[2021-12-16] MEDS: allopurinoL 100 MG TABLET PO SCH (08:40)
[2021-12-16] MEDS: Folic Acid 1 MG TABLET PO SCH (08:40)
[2021-12-16] MEDS: Cyanocobalamin (B-12) 1,000 MCG TABLET PO SCH (08:40)
[2021-12-16] MEDS: Diphenoxylate/Atropine 1 TAB TABLET PO SCH (08:43)
[2021-12-16] MEDS: Fluticasone Propionate Nasal 50 MCG/SPRAY BOTTLE NS SCH (08:44)
[2021-12-16 14:23] VITALS: BP 116/70; PULSE 76; TEMP 97.5; O2SAT 99
== END 2021-12-16 17:21 | disposition home health service (06) ==
LOC: 3ANU 22:26 → EMEROOARM 22:26 → SUATTDRO 12-11 06:05 → 3ANU 12-11 08:08
PROVIDERS: ADMIT Internal Medicine; ATTEND Internal Medicine

== ENCOUNTER 2022-01-25 22:29 | Inpatient (IN) ==
[2022-01-26 00:17] LABS: Alanine Aminotransferase 11 Units/L (7-52); Albumin 2.4 g/dL (3.5-5.7); Albumin/Globulin Ratio 1.2 (1.1-2.2); Alkaline Phosphatase 97 Units/L (34-104); Aspartate Amino Transferase 29 Units/L (13-39); BUN/Creatinine Ratio 18 (6-26); Bilirubin,Direct 0.2 mg/dL (0.0-0.2); Bilirubin,Indirect 0.5 mg/dL (0.0-1.0); Bilirubin,Total 0.7 mg/dL (0.3-1.0); Blood Urea Nitrogen 21 mg/dL (8-23); Calcium 7.1 mg/dL (8.6-10.3); Carbon Dioxide 27 mEq/L (23-29); Chloride 107 mEq/L (98-107); Glucose 148 mg/dL (70-105); Osmolality,Calculated 298 (280-300); Potassium 3.4 mEq/L (3.5-5.1); Sodium 141 mEq/L (136-145); Total Protein 4.4 g/dL (6.4-8.9); eGFR For African Americans 54 (> 60); eGFR For Non-African Americans 44 (> 60)
[2022-01-26 00:33] LABS: Hematocrit 18.9 % (35.3-44.9); Hemoglobin 6.1 g/dL (11.5-15.4); Mean Corpuscular HGB Conc 32.3 g/dL (31.6-35.5); Troponin I < 0.03 ng/mL (< 0.04)
[2022-01-26 00:35] LABS: Immature Platelets 4.5 % (1.1-6.1); Mean Corpuscular Hemoglobin 39.1 pg (28.0-33.3); Mean Corpuscular Volume 121.2 fL (83.0-100.0); Mean Platelet Volume 12.7 fL (9.4-12.4); Nucleated Red Blood Cells 0.3 /100 WBC (0); Red Blood Count 1.56 M/mcL (3.82-4.97); Red Cell Distribution Width 19.9 % (11.5-14.5); White Blood Count 5.9 K/mcL (4.3-11.1)
[2022-01-26 00:36] LABS: Platelet Count 32 K/mcL (140-400)
[2022-01-26 01:17] LABS: Basophils # 0.1 K/mcL (0.0-0.2); Eosinophils # 0.1 K/mcL (0.0-0.6); Lymphocytes # 1.2 K/mcL (0.6-4.6); Monocytes # 0.5 K/mcL (0.0-1.3)
[2022-01-26 01:18] LABS: Platelet Estimate Decreased (Normal)
[2022-01-26 01:19] LABS: Anisocytosis 1+ (Not Present); Macrocytosis Present (Not Present); Poikilocytosis 2+ (Not Present)
[2022-01-26] MEDS ORDERED: Iopamidol - 370 500 ML MLS IVP ONE (03:18)
[2022-01-26] MEDS ORDERED: 0.9 % Sodium Chloride 250 ML ONE (05:38)
[2022-01-26] MEDS ORDERED: Melatonin 3 MG TABLET PO PRN (06:01)
[2022-01-26] MEDS ORDERED: Naloxone 0.4 MG/ML INJ IVP PRN (06:01)
[2022-01-26] MEDS ORDERED: Acetaminophen 325 MG TABLET PO PRN (06:01)
[2022-01-26] MEDS ORDERED: Dextrose Gel 15 GM/37.5 ML TUBE PO PRN ×2 (07:00)
[2022-01-26] MEDS ORDERED: *HR* Dextrose 50 % in Water (Syg) 50 ML SYRINGE IVP PRN (07:00)
[2022-01-26] MEDS ORDERED: D5% in Water 1,000 ML IVC PRN (07:00)
[2022-01-26] MEDS: Furosemide 40 MG/4 ML VIAL IVP SCH ×2 (09:38→16:31)
[2022-01-26] MEDS: Insulin LISPRO 300 UNITS/3 ML VIAL SUBQ SCH ×3 (13:07→21:23)
[2022-01-26] MEDS ORDERED: *HR* Enoxaparin 40 MG/0.4 ML SYRINGE SQ ONE (14:06)
[2022-01-26 15:06] LABS: Nucleated Red Blood Cells 0.3 /100 WBC (0)
[2022-01-26 15:08] LABS: Basophils % 0.7 %; Eosinophils # 0.2 K/mcL (0.0-0.6); Eosinophils % 3.1 %; Hematocrit 23.5 % (35.3-44.9); Hemoglobin 7.7 g/dL (11.5-15.4); Immature Platelets 3.1 % (1.1-6.1); Lymphocytes % 16.6 %; Mean Corpuscular HGB Conc 32.8 g/dL (31.6-35.5); Mean Platelet Volume 9.8 fL (9.4-12.4); Monocytes # 0.6 K/mcL (0.0-1.3); Monocytes % 9.9 %; Red Blood Count 2.08 M/mcL (3.82-4.97); Red Cell Distribution Width 24.1 % (11.5-14.5); Segmented Neutrophils % 67.7 %; White Blood Count 6.1 K/mcL (4.3-11.1)
[2022-01-26 15:10] LABS: Neutrophils # 4.1 K/mcL (1.6-8.9); Platelet Count 31 K/mcL (140-400)
[2022-01-26 15:26] LABS: Calcium 7.4 mg/dL (8.6-10.3); Potassium 3.3 mEq/L (3.5-5.1)
[2022-01-26 15:28] LABS: % Iron Saturation 77 % (15-50); Iron 173 mcg/dL (50-170); Transferrin 160 mg/dL (203-362)
[2022-01-26 15:36] LABS: Anisocytosis 2+ (Not Present); Platelet Estimate Decreased (Normal)
[2022-01-26 15:37] LABS: Macrocytosis Present (Not Present); Polychromasia 1+ (Not Present)
[2022-01-26 15:46] LABS: Ferritin 865 ng/mL (10-120)
[2022-01-26 16:00] LABS: Folate > 22.3 ng/mL (3.0-16.0); Vitamin B12 > 1500 pg/mL (250-1100)
[2022-01-27 02:20] LABS: Hematocrit 21.2 % (35.3-44.9); Immature Platelets 2.9 % (1.1-6.1); Mean Corpuscular Hemoglobin 37.4 pg (28.0-33.3); Mean Corpuscular Volume 113.4 fL (83.0-100.0); Mean Platelet Volume 11.8 fL (9.4-12.4); Red Blood Count 1.87 M/mcL (3.82-4.97); Red Cell Distribution Width 24.3 % (11.5-14.5); White Blood Count 6.3 K/mcL (4.3-11.1)
[2022-01-27 02:29] LABS: Calcium 7.1 mg/dL (8.6-10.3); Potassium 3.4 mEq/L (3.5-5.1)
[2022-01-27] MEDS: *HR* Enoxaparin 40 MG/0.4 ML SYRINGE SQ SCH (05:40)
[2022-01-27] MEDS: Insulin LISPRO 300 UNITS/3 ML VIAL SUBQ SCH ×4 (07:34→20:17)
[2022-01-27] MEDS: Albumin 25% 25gram/100mL 25 GM/100 ML IV.SOLN IVPB SCH ×3 (09:24→20:12)
[2022-01-27] MEDS: Furosemide 40 MG/4 ML VIAL IVP SCH ×2 (11:36→16:58)
[2022-01-28] MEDS: *HR* Enoxaparin 40 MG/0.4 ML SYRINGE SQ SCH (05:42)
[2022-01-28 08:13] LABS: Hematocrit 20.9 % (35.3-44.9); Hemoglobin 6.7 g/dL (11.5-15.4); Immature Platelets 2.4 % (1.1-6.1); Mean Corpuscular HGB Conc 32.1 g/dL (31.6-35.5); Mean Corpuscular Hemoglobin 36.8 pg (28.0-33.3); Mean Corpuscular Volume 114.8 fL (83.0-100.0); Mean Platelet Volume 10.8 fL (9.4-12.4); Red Blood Count 1.82 M/mcL (3.82-4.97); Red Cell Distribution Width 23.5 % (11.5-14.5); White Blood Count 5.1 K/mcL (4.3-11.1)
[2022-01-28] MEDS: Insulin LISPRO 300 UNITS/3 ML VIAL SUBQ SCH ×4 (08:20→21:50)
[2022-01-28] MEDS: Albumin 25% 25gram/100mL 25 GM/100 ML IV.SOLN IVPB SCH ×2 (08:28→22:19)
[2022-01-28 08:33] LABS: Calcium 7.7 mg/dL (8.6-10.3); Potassium 3.5 mEq/L (3.5-5.1)
[2022-01-28] MEDS: Furosemide 40 MG/4 ML VIAL IVP SCH (08:59)
[2022-01-28] MEDS ORDERED: 0.9 % Sodium Chloride 250 ML ONE (11:40)
[2022-01-28] MEDS ORDERED: Diphenoxylate/Atropine 1 TAB TABLET PO PRN (13:47)
[2022-01-28] MEDS: Furosemide 40 MG TABLET PO SCH (16:34)
[2022-01-28] MEDS ORDERED: Latanoprost 2.5 ML BOTTLE BOTH EYES SCH (21:00)
[2022-01-29 01:50] LABS: Basophils % 0.5 %
[2022-01-29 01:51] LABS: Eosinophils # 0.3 K/mcL (0.0-0.6); Eosinophils % 4.6 %; Hematocrit 24.5 % (35.3-44.9); Hemoglobin 8.1 g/dL (11.5-15.4); Immature Granulocytes % 2.5 % (0-4); Immature Platelets 2.3 % (1.1-6.1); Lymphocytes # 1.2 K/mcL (0.6-4.6); Lymphocytes % 19.8 %; Mean Corpuscular HGB Conc 33.1 g/dL (31.6-35.5); Mean Corpuscular Hemoglobin 36.2 pg (28.0-33.3); Mean Corpuscular Volume 109.4 fL (83.0-100.0); Mean Platelet Volume 9.8 fL (9.4-12.4); Monocytes # 0.7 K/mcL (0.0-1.3); Monocytes % 12.2 %; Neutrophils # 3.7 K/mcL (1.6-8.9); Nucleated Red Blood Cells 0.3 /100 WBC (0); Red Blood Count 2.24 M/mcL (3.82-4.97); Red Cell Distribution Width 23.7 % (11.5-14.5); Segmented Neutrophils % 60.4 %; White Blood Count 6.1 K/mcL (4.3-11.1)
[2022-01-29 01:56] LABS: Platelet Count 47 K/mcL (140-400)
[2022-01-29 02:07] LABS: Potassium 3.5 mEq/L (3.5-5.1)
[2022-01-29 02:15] LABS: Pappenheimer Bodies 1+ (Not Present); Platelet Estimate Decreased (Normal)
[2022-01-29 02:16] LABS: Anisocytosis 1+ (Not Present)
[2022-01-29] MEDS: *HR* Enoxaparin 40 MG/0.4 ML SYRINGE SQ SCH (06:01)
[2022-01-29 06:56] VITALS: BP 140/62; PULSE 67; TEMP 98.2; O2SAT 96
[2022-01-29] MEDS ORDERED: Cyanocobalamin (B-12) 1,000 MCG TABLET PO SCH (09:00)
[2022-01-29] MEDS ORDERED: allopurinoL 100 MG TABLET PO SCH (09:00)
[2022-01-29] MEDS: Albumin 25% 25gram/100mL 25 GM/100 ML IV.SOLN IVPB SCH (09:06)
[2022-01-29] MEDS: Furosemide 40 MG TABLET PO SCH ×2 (09:11→16:31)
[2022-01-29] MEDS: Insulin LISPRO 300 UNITS/3 ML VIAL SUBQ SCH ×2 (09:13→13:53)
== END 2022-01-29 17:15 | disposition home health service (06) | DRG 291 ==
LOC: 3BNU 22:29 → EMEROOARM 22:29 → SUATTDRO 01-26 12:34 → 3BNU 01-26 14:15 → SUATTDRO 01-27 10:31
PROVIDERS: ADMIT Internal Medicine; ATTEND Internal Medicine